=== PATIENT | female | born 1960 | race Caucasian/White ===

== ENCOUNTER 2017-08-20 15:24 | Inpatient (IN) | payer BC ==
[2017-08-20] MEDS ORDERED: Famotidine 20 MG/2 ML SDV IVPUSH ONE (15:54)
[2017-08-20] MEDS ORDERED: Pantoprazole 40 MG Vial IVPUSH ONE (15:54)
[2017-08-20] MEDS ORDERED: Sodium Chloride 0.9% 1,000 ML ONE (15:58)
[2017-08-20] MEDS ORDERED: Sodium Chloride 0.9% 1,000 ML IV SCH ×3 (16:00→23:30)
[2017-08-20] MEDS: Sodium Chloride 0.9% 10 ML Syringe FLUSH PRN (16:00)
[2017-08-20] MEDS ORDERED: Sodium Chloride 0.9% 1,000 ML IV ONE (16:08)
[2017-08-20] MEDS ORDERED: Ondansetron 4 MG/2 ML SDV IVPUSH ONE (16:09)
[2017-08-20] MEDS ORDERED: HYDROmorphone 0.5 MG/0.5 ML Syringe IVPUSH ONE ×2 (16:09→17:34)
[2017-08-20] MEDS ORDERED: Levofloxacin/Dextrose 5%-Water 500 MG in Premix Bag 1 BAG IV ONE (17:35)
--- NOTE | 2017-08-20 17:36 | EDM.PDOC ---
ED HPI GENERAL MEDICAL PROBLEM - General Chief Complaint: Abdominal Pain Stated Complaint: [facility] Time Seen by Provider: 08/20/17 15:53 Source of Information: Reports: Patient, EMS, RN Notes Reviewed - History of Present Illness INITIAL COMMENTS - FREE TEXT/NARRATIVE: 57-year-old female has been brought in by EMS with abdominal pain, dizziness, hypotension, hematochezia. She felt fine this past morning, had a normal type launch and then about an hour or 2 later started having abdominal pain and cramping. She then started having some severe watery and bloody diarrhea. The abdominal pain and cramping is been generalized. She has had some nausea but no vomiting. No fever or chills. She states that she did eat some potato salad that she picked up at a store 2 or 3 days ago lunch today. She does feel weak, dizzy, lightheaded. Have history of hypertension and also type 2 diabetes treated with oral meds. Lower Abdominal Pain Score (Numeric/FACES): 0 - Related Data Allergies Allergy/AdvReac Type Severity Reaction Status Date / Time latex Allergy Rash Verified 08/20/17 15:49 Past Medical History - Past Surgical History HEENT Surgical History: Reports: Visual GI Surgical History: Reports: Bariatric Procedure Female Surgical History: Reports: Hysterectomy Social & Family History - Tobacco Use Smoking Status *Q: Never Smoker Second Hand Smoke Exposure: No - Caffeine Use Caffeine Use: Reports: None - Recreational Drug Use Recreational Drug Use: No ED ROS GENERAL - Review of Systems Review Of Systems: See Below Constitutional: Reports: Chills. Denies: Fever HEENT: Reports: Other. Denies: Throat Pain Respiratory: Denies: Shortness of Breath (Mouth feels dry), Pleuritic Chest Pain Cardiovascular: Denies: Chest Pain GI/Abdominal: Reports: Abdominal Pain, Diarrhea (Generalized abdominal pain and cramping), Hematochezia, Nausea. Denies: Vomiting Musculoskeletal: Reports: Other (Generalized achiness) Skin: Denies: Rash Neurological: Reports: Dizziness, Weakness. Denies: Trouble Speaking ( Generalized) ED EXAM, GI/ABD - Physical Exam Exam: See Below General Appearance: Alert, Moderate Distress Eyes: Bilateral: Normal Appearance Throat/Mouth: Normal Inspection, Other Head: Atraumatic (Oral mucosa is dry). No: Facial Swelling Neck: Supple, Full Range of Motion Respiratory/Chest: No Respiratory Distress, Lungs Clear, Normal Breath Sounds Cardiovascular: Regular Rate, Rhythm GI/Abdominal Exam: Soft, Tender (Moderate diffuse tenderness). No: Guarding, Rebound Extremities: Normal Inspection, Normal Range of Motion. No: Pedal Edema Neurological: Alert, Oriented, No Motor/Sensory Deficits Skin Exam: Warm, Dry, Normal Color Course - Vital Signs Last Recorded V/S: Last Vital Signs Temp 96.2 F 08/20/17 15:45 Pulse 88 08/20/17 15:45 Resp 18 08/20/17 15:45 BP 87/58 L 08/20/17 15:45 Pulse Ox 99 08/20/17 15:45 - Orders/Labs/Meds Orders: Active Orders 24 hr Category Date Time Status Peripheral IV Care [RC] . DIRECTED Care 08/20/17 15:55 Active CULTURE STOOL + SHIGATOX [RM] Stat Lab 08/20/17 18:05 Received Sodium Chloride 0.9% [Normal Saline] 1,000 ml Med 08/20/17 16:00 Active IV ONETIME Sodium Chloride 0.9% [Normal Saline] 1,000 ml Med 08/20/17 17:45 Active IV ONETIME Sodium Chloride 0.9% [Saline Flush] Med 08/20/17 15:54 Active 10 ml FLUSH ASDIRECTED PRN Peripheral IV Insertion Adult [OM.PC] Stat Oth 08/20/17 15:54 Ordered Medication Orders Sodium Chloride (Normal Saline) 1,000 mls @ 999 mls/hr IV ONETIME EN Last Admin: 08/20/17 15:59 Dose: 999 mls/hr Sodium Chloride (Normal Saline) 1,000 mls @ 999 mls/hr IV ONETIME EN Last Admin: 08/20/17 17:45 Dose: 999 mls/hr Sodium Chloride (Saline Flush) 10 ml FLUSH ASDIRECTED PRN PRN Reason: Keep Vein Open Last Admin: 08/20/17 16:00 Dose: 10 ml Labs: Laboratory Tests 08/20/17 08/20/17 08/20/17 Range/Units 16:00 16:00 16:00 WBC 22.85 H (3.98-10.04) K/mm3 RBC 5.34 H (3.98-5.22) M/mm3 Hgb 14.7 (11.2-15.7) gm/L Hct 45.8 H (34.1-44.9) % MCV 85.8 (79.4-94.8) fl MCH 27.5 (25.6-32.2) pg MCHC 32.1 L (32.2-35.5) g/dl RDW Std Deviation 46.0 (36.4-46.3) fL Plt Count 228 (182-369) K/mm3 MPV 9.9 (9.4-12.3) fl Neut % (Auto) 88.0 H (34.0-71.1) % Lymph % (Auto) 6.3 L (19.3-51.7) % Gooding % (Auto) 3.9 L (4.7-12.5) % Eos % (Auto) 0.9 (0.7-5.8) Baso % (Auto) 0.3 (0.1-1.2) % Neut # (Auto) 20.14 H (1.56-6.13) K/mm3 Lymph # (Auto) 1.43 (1.18-3.74) K/mm3 Gooding # (Auto) 0.89 H (0.24-0.36) K/mm3 Eos # (Auto) 0.20 (0.04-0.36) K/mm3 Baso # (Auto) 0.06 (0.01-0.08) K/mm3 Manual Slide Review Normal smear PT 42.2 H (8.0-13.0) SECONDS INR 3.57 APTT 42 H (22-36) SECONDS Sodium 137 (136-145) mEq/L Potassium 5.0 (3.5-5.1) mEq/L Chloride 101 (98-107) mEq/L Carbon Dioxide 23 (21-32) mEq/L Anion Gap 18.0 H (5-15) BUN 29 H (7-18) mg/dL Creatinine 1.6 H (0.55-1.02) mg/dL Est Cr Clr Drug Dosing 34.49 mL/min Estimated GFR (MDRD) 33 (>60) mL/min BUN/Creatinine Ratio 18.1 H (14-18) Glucose 392 H (74-106) mg/dL Calcium 10.2 H (8.5-10.1) mg/dL Total Bilirubin 0.5 (0.2-1.0) mg/dL AST 32 (15-37) U/L ALT 37 (14-59) U/L Alkaline Phosphatase 110 (46-116) U/L Total Protein 7.6 (6.4-8.2) g/dl Albumin 3.8 (3.4-5.0) g/dl Globulin 3.8 gm/dL Albumin/Globulin Ratio 1.0 (1-2) Blood Type Gel Antibody Screen 08/20/17 Range/Units 16:00 WBC (3.98-10.04) K/mm3 RBC (3.98-5.22) M/mm3 Hgb (11.2-15.7) gm/L Hct (34.1-44.9) % MCV (79.4-94.8) fl MCH (25.6-32.2) pg MCHC (32.2-35.5) g/dl RDW Std Deviation (36.4-46.3) fL Plt Count (182-369) K/mm3 MPV (9.4-12.3) fl Neut % (Auto) (34.0-71.1) % Lymph % (Auto) (19.3-51.7) % Gooding % (Auto) (4.7-12.5) % Eos % (Auto) (0.7-5.8) Baso % (Auto) (0.1-1.2) % Neut # (Auto) (1.56-6.13) K/mm3 Lymph # (Auto) (1.18-3.74) K/mm3 Gooding # (Auto) (0.24-0.36) K/mm3 Eos # (Auto) (0.04-0.36) K/mm3 Baso # (Auto) (0.01-0.08) K/mm3 Manual Slide Review PT (8.0-13.0) SECONDS INR APTT (22-36) SECONDS Sodium (136-145) mEq/L Potassium (3.5-5.1) mEq/L Chloride (98-107) mEq/L Carbon Dioxide (21-32) mEq/L Anion Gap (5-15) BUN (7-18) mg/dL Creatinine (0.55-1.02) mg/dL Est Cr Clr Drug Dosing mL/min Estimated GFR (MDRD) (>60) mL/min BUN/Creatinine Ratio (14-18) Glucose (74-106) mg/dL Calcium (8.5-10.1) mg/dL Total Bilirubin (0.2-1.0) mg/dL AST (15-37) U/L ALT (14-59) U/L Alkaline Phosphatase (46-116) U/L Total Protein (6.4-8.2) g/dl Albumin (3.4-5.0) g/dl Globulin gm/dL Albumin/Globulin Ratio (1-2) Blood Type O POSITIVE Gel Antibody Screen Negative Meds: Medications Generic Name Dose Route Start Last Admin Trade Name Freq PRN Reason Stop Dose Admin Sodium Chloride 1,000 mls @ 999 mls/hr 08/20/17 16:00 08/20/17 15:59 Normal Saline IV 999 mls/hr ONETIME EN Administration Sodium Chloride 1,000 mls @ 999 mls/hr 08/20/17 17:45 08/20/17 17:45 Normal Saline IV 999 mls/hr ONETIME EN Administration Sodium Chloride 10 ml 08/20/17 15:54 08/20/17 16:00 Saline Flush FLUSH 10 ml ASDIRECTED PRN Administration Keep Vein Open Discontinued Medications Generic Name Dose Route Start Last Admin Trade Name Freq PRN Reason Stop Dose Admin Famotidine 20 mg 08/20/17 15:54 08/20/17 16:05 Pepcid IVPUSH 08/20/17 15:55 20 mg ONETIME ONE Administration Hydromorphone HCl 0.25 mg 08/20/17 16:09 08/20/17 16:37 Dilaudid IVPUSH 08/20/17 16:10 0.25 mg ONETIME ONE Administration Hydromorphone HCl 0.25 mg 08/20/17 17:34 08/20/17 17:50 Dilaudid IVPUSH 08/20/17 17:35 0.25 mg ONETIME ONE Administration Sodium Chloride Confirm 08/20/17 15:58 08/20/17 16:00 Normal Saline Administered 08/20/17 15:59 Not Given Dose 1,000 mls @ as directed .ROUTE .STK-MED ONE Sodium Chloride 1,000 mls @ 999 mls/hr 08/20/17 16:08 08/20/17 16:09 Normal Saline IV 08/20/17 17:08 999 mls/hr ONETIME ONE Administration Levofloxacin/Dextrose 500 mg/ 100 mls @ 100 mls/hr 08/20/17 17:35 08/20/17 17 :55 Premix IV 08/20/17 18:34 100 mls/hr ONETIME ONE Administration Ondansetron HCl 4 mg 08/20/17 16:09 08/20/17 16:35 Zofran IVPUSH 08/20/17 16:10 4 mg ONETIME ONE Administration Pantoprazole Sodium 40 mg 08/20/17 15:54 08/20/17 16:03 Protonix Iv IVPUSH 08/20/17 15:55 40 mg ONETIME ONE Administration - Re-Assessments/Exams Free Text/Narrative Re-Assessment/Exam: 08/20/17 19:18 patient did feel better after 2 L IV fluid, very small dose of Dilaudid IV, Pepcid Zofran and Protonix IV. Liver she has had multiple further episodes of watery alternating with quite bloody diarrhea. Labs did show significant dehydration on arrival. Anion gap and creatinine both elevated. With all of that and her initial hypotension it is reasonable to admit until the bleeding resolves, white blood count comes down and fluid balance is adequately restored. She will be admitted to ICU, Dr. Olmstead accepting physician Departure - Departure Time of Disposition: 19:00 Disposition: Admitted As Inpatient 65 Condition: Serious Clinical Impression: Colitis, Dehydration GI bleeding Qualifiers: GI bleed type/associated pathology: unspecified gastrointestinal hemorrhage type Qualified Code(s): K92.2 - Gastrointestinal hemorrhage, unspecified - Discharge Information Referrals: Ria Wheeler MD [Primary Care Provider] - Forms: ED Department Discharge ED Communication - Discussed Case With (1) Discussed Case With (1): Admitting Provider (Dr Olmstead, decision to admit at about 19:00.) - My Orders Last 24 Hours: My Active Orders 08/20/17 15:54 Sodium Chloride 0.9% [Saline Flush] 10 ml FLUSH ASDIRECTED PRN Peripheral IV Insertion Adult [OM.PC] Stat 08/20/17 15:55 Peripheral IV Care [RC] . DIRECTED 08/20/17 16:00 Sodium Chloride 0.9% [Normal Saline] 1,000 ml IV ONETIME 08/20/17 17:45 Sodium Chloride 0.9% [Normal Saline] 1,000 ml IV ONETIME 08/20/17 18:05 CULTURE STOOL + SHIGATOX [RM] Stat - Assessment/Plan Last 24 Hours: My Active Orders 08/20/17 15:54 Sodium Chloride 0.9% [Saline Flush] 10 ml FLUSH ASDIRECTED PRN Peripheral IV Insertion Adult [OM.PC] Stat 08/20/17 15:55 Peripheral IV Care [RC] . DIRECTED 08/20/17 16:00 Sodium Chloride 0.9% [Normal Saline] 1,000 ml IV ONETIME 08/20/17 17:45 Sodium Chloride 0.9% [Normal Saline] 1,000 ml IV ONETIME 08/20/17 18:05 CULTURE STOOL + SHIGATOX [RM] Stat
[2017-08-20] MEDS ORDERED: Promethazine 12.5 MG in Sodium Chloride 0.9% 50 ML IV PRN (20:07)
[2017-08-20] MEDS ORDERED: Acetaminophen/HYDROcodone 325-5 MG Tab PO PRN (20:07)
[2017-08-20] MEDS ORDERED: Ondansetron 4 MG/2 ML SDV IV PRN (20:07)
[2017-08-20] MEDS ORDERED: Acetaminophen 325 MG Tab PO PRN (20:07)
[2017-08-20] MEDS ORDERED: HYDROmorphone 0.5 MG/0.5 ML Syringe IVPUSH PRN (20:07)
[2017-08-20] MEDS ORDERED: Albuterol/Ipratropium 3.0-0.5 MG/3 ML Neb Soln NEB PRN (20:09)
[2017-08-20] MEDS ORDERED: Metoprolol Tartrate 5 MG/5 ML SDV IVPUSH PRN (20:13)
[2017-08-20] MEDS ORDERED: FLU Vacc QS 2017-18 (6mos UP)/PF 60 MCG/0.5 ML Syringe IM ONE (20:15)
--- NOTE | 2017-08-20 20:31 | PCM.HP ---
H&P History of Present Illness - General Date of Service: 08/20/17 Admit Problem/Dx: GI Bleeding Source of Information: Patient, Old Records, Provider, RN, RN Notes Reviewed History Limitations: Reports: No Limitations - History of Present Illness Initial Comments - Free Text/Narative: Blanquita Huynh is a 57 yo female who presents to our ED today (08/20/16) via ambulance with abdominal pain, dizziness, hypotension, hematochezia. She poorly felt fine this morning and had a normal lunch with potato salad which was store-bought 2-3 days prior. Approximately 2 hours later she began having abdominal pain and cramping followed by severe watery and bloody diarrhea. She' s had some nausea but no vomiting, fever, or chills. She reports she feels weak , dizzy, lightheaded. On arrival temp is 96.2F. Pulse 88. Respiration 18. BP 87/58. Pulse ox 99% . Labs are obtained: The FVC elevated at 22.85. RBC high at 5.34. Hemoglobin good at 14.7. Hematocrit high at 45.8. She was normocytic. Pulses are 228, 000. Neutrophils elevated at 88%. PT is high at 42.2. INR high at 3.57. APTT high at 42. She's not on any blood thinners. Sodium is 138. Potassium 5.0. Chloride 101. Carbon dioxide 23. Anion gap high at 18.0. BUN high at 29. Creatinine high at 1.6. EGFR low at 33. Glucose high at 392. Calcium high at 10.2. Bilirubin 0.5. AST 32, ALT 37, alkaline phosphatase 110. Protein good at 7.6. Albumin 3.8. Stool cultures were also ordered and are pending. She was typed and screened with O+ blood gel antibody screen negative. She is given a 2 L bolus and 0.25 of Dilaudid twice for pain. 20 mg IV push of Pepcid was given. 500 mg Levaquin, 40 mg protonic's, and 4 mg Zofran were also given. After medication she did have multiple further episodes of watery diarrhea alternating with quite bloody diarrhea. As noted, her labs showed significant dehydration with elevated anion gap, hematocrit, and creatinine. She carries a history of: LAP-BAND procedure, hypertension, HLD, arthritis, type II DM. She did recently see her GI provider for follow-up on the LAP-BAND and was told everything looks great. She was never a smoker. She subsequently admitted to the ICU. She is a full code. Her PCP is Dr. Stallings at [facility] in [place]. Onset of Symptoms: Reports: Today, Sudden Symptom Onset Date: 08/20/17 Lower Abdominal Pain Score (Numeric/FACES): 0 - Related Data Allergies/Adverse Reactions: Allergies Allergy/AdvReac Type Severity Reaction Status Date / Time latex Allergy Rash Verified 08/20/17 15:49 Home Medications: Home Meds Aspirin [Lo-Dose Aspirin EC] 81 mg PO DAILY 08/20/17 [History] Hydrochlorothiazide 12.5 mg PO DAILY 08/20/17 [History] Lisinopril [Zestril] 40 mg PO DAILY 08/20/17 [History] Multivitamin [Multiple Vitamins] 1 tab PO DAILY 08/20/17 [History] Isabella-3S/DHA/Epa/Fish Oil [Isabella-3 Fish Oil 1,000 mg Sfgl] 1,000 mg PO DAILY 05/28 [History] Oxybutynin Chloride [Ditropan Xl] 10 mg PO DAILY 08/20/17 [History] Protein Liquid Nutritional Sup 0 dose PO ASDIRECTED 08/20/17 [History] Ubiquinol 100 mg PO DAILY 08/20/17 [History] Vitamin B Complex [B Complex] 1 tab PO DAILY 08/20/17 [History] amLODIPine [Norvasc] 5 mg PO DAILY 08/20/17 [History] atorvaSTATin [Lipitor] 20 mg PO DAILY 08/20/17 [History] glyBURIDE [Glyburide] 5 mg PO DAILY 08/20/17 [History] sitaGLIPtin Phos/Metformin HCl [Janumet 50-1,000 MG] 50 - 1,000 mg PO DAILY 05/28 [History] Past Medical History HEENT History: Reports: Other (See Below) Other HEENT History: Eye sx in 2016 Cardiovascular History: Reports: High Cholesterol, Hypertension 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: Reports: Other (See Below) Other OB/BYN History: Hysterectomy Musculoskeletal History: Reports: Arthritis Endocrine/Metabolic History: Reports: Diabetes, Type II - Past Surgical History HEENT Surgical History: Reports: Visual Cardiovascular Surgical History: Reports: None GI Surgical History: Reports: Bariatric Procedure Female Surgical History: Reports: Hysterectomy Social & Family History - Family History Family Medical History: Noncontributory - Tobacco Use Smoking Status *Q: Never Smoker Second Hand Smoke Exposure: No - Caffeine Use Caffeine Use: Reports: Soda - Recreational Drug Use Recreational Drug Use: No H&P Review of Systems - Review of Systems: Review Of Systems: See Below Free Text/Narrative: In to see Blanquita. She is complaining of some abdominal pain. She does note generalized abdominal tenderness and some back pain. The back pain is not new for her and she has been working with a therapist for this. She reports symptoms began today after eating some store-bought potato salad. She has had this salad 2-3 times in the past without symptoms. It has been refrigerated. She denies any recent changes in stool pattern or caliber. She has never had grossly bloody, melenic, or blood-streaked stool before. She has never had a colonoscopy. She has had a lap band procedure, but reports she was recently evaluated by her surgeon and told everything looks good. General: Reports: Chills, Malaise, Weakness, Fatigue, Decreased Appetite. Denies: Fever, Diaphoresis HEENT: Reports: No Symptoms. Denies: Ear Pain, Eye Pain, Headaches, Rhinitis, Sinus Congestion, Sore Throat, Visual Changes Pulmonary: Reports: No Symptoms. Denies: Shortness of Breath, Wheezing, Pleuritic Chest Pain, Cough, Sputum Cardiovascular: Reports: Lightheadedness. Denies: Chest Pain, Palpitations, Dyspnea on Exertion, Edema, Syncope Gastrointestinal: Reports: Abdominal Pain (crampy in nature ), Diarrhea, Flatus , Hematochezia, Nausea, Stool Incontinence. Denies: Constipation, Difficulty Swallowing, Hematemesis, Melena, Vomiting Genitourinary: Denies: Dysuria, Frequency, Burning, Pain, Urgency Musculoskeletal: Reports: Back Pain (chronic - being treated by a therapist. Worseing now laying in bed. ), Other (generalized achy feeling ) Skin: Reports: No Symptoms Psychiatric: Reports: No Symptoms Neurological: Reports: No Symptoms Hematologic/Lymphatic: Reports: No Symptoms. Denies: Anemia, Easy Bleeding, Easy Bruising Immunologic: Reports: No Symptoms Exam - Exam Exam: See Below - Vital Signs Vital Signs: Last Vital Signs Temp 96.2 F 08/20/17 15:45 Pulse 88 08/20/17 15:45 Resp 18 08/20/17 15:45 BP 87/58 L 08/20/17 15:45 Pulse Ox 99 08/20/17 15:45 Weight: 221 lb 4.8 oz - Exam Quality Assessment: DVT Prophylaxis General: Alert, Oriented, Cooperative, Mild Distress HEENT: Conjunctiva Clear, EACs Clear, EOMI, Hearing Intact, Nares Patent, Normal Nasal Septum, Posterior Pharynx Clear, TMs Clear, Other (Oral mucosa dry and fissured ), PERRLA Neck: Supple, Trachea Midline. No: JVD, Thyromegaly Lungs: Clear to Auscultation, Normal Respiratory Effort Cardiovascular: Regular Rate, Regular Rhythm GI/Abdominal Exam: Normal Bowel Sounds, Soft, Guarding, Tender (generalized ), Other (unable to deeply palpate due to pain and guarding ) (Female) Exam: Deferred Rectal (Female) Exam: Deferred Back Exam: Normal Inspection, Full Range of Motion Extremities: Normal Inspection, Normal Range of Motion, Non-Tender, No Pedal Edema, Normal Capillary Refill Peripheral Pulses: 2+: Radial (L), Radial (R), Posterior Tibial (L), Posterior Tibial (R), Dorsalis Pedis (L), Dorsalis Pedis (R) Skin: Warm, Dry, Intact Neurological: Cranial Nerves Intact (grossly ) Neuro Extensive - Mental Status: Alert, Oriented x3, Normal Mood/Affect, Normal Cognition, Memory Intact Neuro Extensive - Motor, Sensory, Reflexes: CN II-XII Intact (grossly ), Normal Gait Psychiatric: Alert, Normal Affect, Normal Mood - Patient Data Result Diagrams: 08/20/17 20:45 08/20/17 16:00 *Q Meaningful Use (ADM) - VTE *Q VTE Criteria *Q: - Stroke *Q Stroke Criteria *Q: - AMI *Q AMI Criteria *Q: - Problem List (1) GI bleeding SNOMED Code(s): 46849867 ICD Code: K92.2 - GASTROINTESTINAL HEMORRHAGE, UNSPECIFIED Status: Acute Priority: High Current Visit: Yes Qualifiers: GI bleed type/associated pathology: unspecified gastrointestinal hemorrhage type Qualified Code(s): K92.2 - Gastrointestinal hemorrhage, unspecified (2) Dehydration SNOMED Code(s): 26208972 ICD Code: E86.0 - DEHYDRATION Status: Acute Priority: High Current Visit: Yes (3) Type II diabetes mellitus SNOMED Code(s): 72327283 ICD Code: E11.9 - TYPE 2 DIABETES MELLITUS WITHOUT COMPLICATIONS Status: Chronic Priority: Low Current Visit: Yes Qualifiers: Diabetes mellitus complication status: without complication Diabetes mellitus vermin exterminator insulin use: without vermin exterminator use Qualified Code(s): E11.9 - Type 2 diabetes mellitus without complications (4) HTN (hypertension) SNOMED Code(s): 69379568 ICD Code: I10 - ESSENTIAL (PRIMARY) HYPERTENSION Status: Acute Priority: Low Current Visit: No Qualifiers: Hypertension type: essential hypertension Qualified Code(s): I10 - Essential (primary) hypertension (5) Arthritis SNOMED Code(s): 1080489 ICD Code: M19.90 - UNSPECIFIED OSTEOARTHRITIS, UNSPECIFIED SITE Status: Chronic Priority: Low Current Visit: No (6) HLD (hyperlipidemia) SNOMED Code(s): 84491038 ICD Code: E78.5 - HYPERLIPIDEMIA, UNSPECIFIED Status: Chronic Priority: Low Current Visit: No Qualifiers: Hyperlipidemia type: unspecified Qualified Code(s): E78.5 - Hyperlipidemia , unspecified (7) Acute kidney injury SNOMED Code(s): 99347889 ICD Code: N17.9 - ACUTE KIDNEY FAILURE, UNSPECIFIED Status: Acute Priority: High Current Visit: Yes Problem List Initiated/Reviewed/Updated: Yes Orders Last 24hrs: Active Orders 24 hr Category Date Time Status Antiembolic Devices [RC] PER UNIT ROUTINE Care 08/20/17 20:10 Active Cardiac Monitoring [RC] CONTINUOUS Care 08/20/17 20:08 Active Height and Weight [RC] DAILY Care 08/20/17 20:07 Active Intake and Output [RC] QSHIFT Care 08/20/17 20:08 Active Oxygen Therapy [RC] PRN Care 08/20/17 20:07 Active RT Aerosol Therapy [RC] ASDIRECTED Care 08/20/17 20:10 Active Up ad Milagro [RC] ASDIRECTED Care 08/20/17 20:07 Active VTE/DVT Education [RC] PER UNIT ROUTINE Care 08/20/17 20:07 Active Vital Signs [RC] Q4H Care 08/20/17 20:07 Active Nothing per Oral Now Diet [DIET] Diet 08/20/17 Dinner Active BASIC METABOLIC PANEL,BMP [CHEM] AM Lab 08/21/17 05:11 Ordered BASIC METABOLIC PANEL,BMP [CHEM] AM Lab 08/22/17 05:11 Ordered BASIC METABOLIC PANEL,BMP [CHEM] AM Lab 08/23/17 05:11 Ordered BASIC METABOLIC PANEL,BMP [CHEM] AM Lab 08/24/17 05:11 Ordered BASIC METABOLIC PANEL,BMP [CHEM] AM Lab 08/25/17 05:11 Ordered CBC WITH AUTO DIFF [HEME] AM Lab 08/21/17 05:11 Ordered CBC WITH AUTO DIFF [HEME] AM Lab 08/22/17 05:11 Ordered CBC WITH AUTO DIFF [HEME] AM Lab 08/23/17 05:11 Ordered CBC WITH AUTO DIFF [HEME] AM Lab 08/24/17 05:11 Ordered CBC WITH AUTO DIFF [HEME] Routine Lab 08/20/17 20:11 Ordered CRP [C-REACTIVE PROTEIN] [CHEM] AM Lab 08/21/17 05:11 Ordered CRP [C-REACTIVE PROTEIN] [CHEM] Stat Lab 08/20/17 20:15 Ordered FECAL LACTOFERRIN [MREF] Stat Lab 08/20/17 20:15 Uncollected MAGNESIUM [CHEM] AM Lab 08/21/17 05:11 Ordered MAGNESIUM [CHEM] AM Lab 08/22/17 05:11 Ordered MAGNESIUM [CHEM] AM Lab 08/23/17 05:11 Ordered MAGNESIUM [CHEM] AM Lab 08/24/17 05:11 Ordered MAGNESIUM [CHEM] AM Lab 08/25/17 05:11 Ordered TYPE AND SCREEN [BBK] Routine Lab 08/20/17 20:14 Ordered Acetaminophen [Tylenol] Med 08/20/17 20:07 Active 650 mg PO Q4H PRN Acetaminophen/HYDROcodone [[place] 325-5 MG] Med 08/20/17 20:07 Active 1 tab PO Q4H PRN Albuterol/Ipratropium [DuoNeb 3.0-0.5 MG/3 ML] Med 08/20/17 20:09 Active 3 ml NEB Q4H PRN HYDROmorphone [Dilaudid] Med 08/20/17 20:07 Active 0.25 mg IVPUSH Q2H PRN Magnesium Rep Pharmacy to Dose [Pharmacy to Dose - Med 08/20/17 20:15 Pending Magnesium Replacement] 1 dose .XX ASDIRECTED Metoprolol Tartrate [Lopressor] Med 08/20/17 20:13 Active 5 mg IVPUSH Q4H PRN Ondansetron [Zofran] Med 08/20/17 20:07 Active 4 mg IV Q4H PRN Pantoprazole [ProTONIX IV] Med 08/20/17 21:00 Active 40 mg IV Q12H Potassium Rep Pharmacy to Dose [Pharmacy to Dose - Med 08/20/17 20:15 Pending Potassium Replacement] 1 dose .XX ASDIRECTED Promethazine [Phenergan] 12.5 mg Med 08/20/17 20:07 Active Sodium Chloride 0.9% [Normal Saline] 50 ml IV Q6H Temazepam [Restoril] Med 08/20/17 20:09 Active 15 mg PO BEDTIME PRN hydrALAZINE [Apresoline] Med 08/20/17 20:13 Active 20 mg IVPUSH Q4H PRN Sequential Compression Device [OM.PC] Per Unit Routine Oth 08/20/17 20:08 Ordered Resuscitation Status Routine Resus Stat 08/20/17 20:07 Ordered Medication Orders Acetaminophen (Tylenol) 650 mg PO Q4H PRN PRN Reason: Pain (Mild 1-3)/fever Hydrocodone Bitart/Acetaminophen ([place] 325-5 Mg) 1 tab PO Q4H PRN PRN Reason: Pain (moderate 4-6) Albuterol/Ipratropium (Duoneb 3.0-0.5 Mg/3 Ml) 3 ml NEB Q4H PRN PRN Reason: Shortness Of Breath/wheezing Hydralazine HCl (Apresoline) 20 mg IVPUSH Q4H PRN PRN Reason: Hypertension Hydromorphone HCl (Dilaudid) 0.25 mg IVPUSH Q2H PRN PRN Reason: Pain (severe 7-10) Sodium Chloride (Normal Saline) 1,000 mls @ 999 mls/hr IV ONETIME EN Last Admin: 08/20/17 15:59 Dose: 999 mls/hr Sodium Chloride (Normal Saline) 1,000 mls @ 999 mls/hr IV ONETIME EN Last Admin: 08/20/17 17:45 Dose: 999 mls/hr Promethazine HCl 12.5 mg/ (Sodium Chloride) 50.5 mls @ 100 mls/hr IV Q6H PRN PRN Reason: Nausea/Vomiting Magnesium Sulfate (Pharmacy To Dose - Magnesium Replacement) 1 dose .XX ASDIRECTED [facility] Metoprolol Tartrate (Lopressor) 5 mg IVPUSH Q4H PRN PRN Reason: Tachycardia Ondansetron HCl (Zofran) 4 mg IV Q4H PRN PRN Reason: Nausea/Vomiting Pantoprazole Sodium (Protonix Iv) 40 mg IV Q12H EN Stop: 08/22/17 09:01 Potassium Chloride (Pharmacy To Dose - Potassium Replacement) 1 dose .XX ASDIRECTED [facility] Sodium Chloride (Saline Flush) 10 ml FLUSH ASDIRECTED PRN PRN Reason: Keep Vein Open Last Admin: 08/20/17 16:00 Dose: 10 ml Temazepam (Restoril) 15 mg PO BEDTIME PRN PRN Reason: Sleep Assessment/Plan Comment:: I/P: GI Bleed -Multiple episodes of bloody and watery alternating diarrhea in ED and prior to arrival -Generalized abdominal pain/guarding -Nausea but no vomiting, afebrile -PT 42.2, INR 3.57, APTT 42 - not on any blood thinners -Hgb 14.7-->13.5 -2L fluid bolus in ED -Type and screen -Fecal lactoferren -Fluids as ordered -Protonix IVP -Consider GS consult Leukocytosis -? Foodborne infection vs other cause -Reportedly ate potato salad prior to events -WBC 22.85 -->13.62 -CRP 0.8 -Levaquin given in ED -Stool culture obtained in ED - pending Dehydration -Elevated Anion gap (18.0), Creatinine (1.6), Hct (45.8), hypotensive (87/58) , lightheaded and dizzy in ED -Multiple episodes of diarrhea -Very dry mucous membranes -2 L NS given in ED -Electrolytes look good -IV fluids as ordered -Monitor Acute Kidney Injury -2/2 above -BUN 29 -Creatinine 1.6 -eGFR 33 -Fluids as ordered Chronic: Type II DM - sliding scale insulin and glucose checks as ordered HLD HTN Arthritis s/p LAP BAND surgery Plan: Admit to ICU Routine AM labs Other orders as indicated above DVT/PE prophylaxis: SCDs CM for discharge planning Home medications as ordered Code Status: FULL CODE. Her PCP is Dr. Stallings at [facility] here in [place].
[2017-08-20] MEDS ORDERED: 50% Dextrose in Water 50 ML Syringe IVPUSH PRN (20:38)
[2017-08-20] MEDS: Temazepam 15 MG Cap PO PRN (21:09)
[2017-08-20] MEDS: Pantoprazole 40 MG Vial IV SCH (21:09)
[2017-08-20] MEDS ORDERED: Insulin Aspart 100 Units/ML 3 ML Pen SUBCUT SCH (22:00)
[2017-08-20] MEDS: Insulin Aspart 100 Units/ML 3 ML Pen SUBCUT SCH (22:30)
[2017-08-21] MEDS: Insulin Aspart 100 Units/ML 3 ML Pen SUBCUT SCH ×4 (07:27→21:00)
[2017-08-21] MEDS ORDERED: Magnesium Oxide 400 MG Tab PO ONE (08:30)
[2017-08-21] MEDS: Dextrose 5%-0.9% NaCl 1,000 ML IV SCH ×2 (09:12→19:20)
[2017-08-21] MEDS: Pantoprazole 40 MG Vial IV SCH ×2 (09:13→20:52)
[2017-08-21] MEDS ORDERED: Magnesium Sulfate/Water 2 GM in Premix Bag 1 BAG IV ONE (10:30)
--- NOTE | 2017-08-21 14:52 | PCM.PN ---
- General Info Date of Service: 08/21/17 Admission Dx/Problem (Free Text): GI Bleeding Subjective Update: Follow up Functional Status: Reports: Pain Controlled, Ambulating, Urinating. Denies: New Symptoms - Review of Systems General: Denies: Fever, Weakness, Fatigue, Malaise, Chills HEENT: Reports: No Symptoms Pulmonary: Denies: Shortness of Breath Cardiovascular: Denies: Chest Pain, Dyspnea on Exertion, Lightheadedness Gastrointestinal: Reports: Abdominal Pain, Diarrhea, Flatus, Hematochezia. Denies: Decreased Appetite, Difficulty Swallowing, Melena, Nausea, Vomiting Genitourinary: Reports: No Symptoms Musculoskeletal: Reports: No Symptoms Skin: Denies: Cyanosis, Jaundice, Mottled, Pallor, Diaphoresis, Rash Neurological: Denies: Confusion, Difficulty Walking, Weakness, Gait Disturbance Psychiatric: Denies: Depression, Anxiety, Agitation, Hallucinations Systems Review Comment:: She has had 5 rectal bleed overnight and one this morning but a less bloody- pinkish in color. She is afebrile and her leukocytosis resolved. However she report belly discomfort that is pressure like in nature. She reports no other complaints. Her Hgb is stable at 10.9. - Patient Data Vitals - Most Recent: Last Vital Signs Temp 37.2 C 08/21/17 12:00 Pulse 75 08/21/17 12:00 Resp 13 08/21/17 12:00 BP 117/79 08/21/17 12:00 Pulse Ox 94 L 08/21/17 12:00 Weight - Most Recent: 100.062 kg I&O - Last 24 Hours: Intake & Output 08/20/17 08/21/17 08/21/17 22:59 06:59 14:59 Intake Total 881 125 Balance 881 125 Lab Results Last 24 Hours: Laboratory Results - last 24 hr 08/20/17 08/20/17 08/20/17 Range/Units 20:45 20:45 21:17 WBC 13.62 H (3.98-10.04) K/mm3 RBC 4.89 (3.98-5.22) M/mm3 Hgb 13.5 (11.2-15.7) gm/L Hct 41.7 (34.1-44.9) % MCV 85.3 (79.4-94.8) fl MCH 27.6 (25.6-32.2) pg MCHC 32.4 (32.2-35.5) g/dl RDW Std Deviation 44.9 (36.4-46.3) fL Plt Count 149 L (182-369) K/mm3 MPV 9.9 (9.4-12.3) fl Neut % (Auto) 90.6 H (34.0-71.1) % Lymph % (Auto) 4.0 L (19.3-51.7) % Bureau % (Auto) 4.6 L (4.7-12.5) % Eos % (Auto) 0.2 L (0.7-5.8) Baso % (Auto) 0.1 (0.1-1.2) % Neut # (Auto) 12.32 H (1.56-6.13) K/mm3 Lymph # (Auto) 0.55 L (1.18-3.74) K/mm3 Bureau # (Auto) 0.63 H (0.24-0.36) K/mm3 Eos # (Auto) 0.03 L (0.04-0.36) K/mm3 Baso # (Auto) 0.02 (0.01-0.08) K/mm3 Manual Slide Review Abnormal smear Sodium (136-145) mEq/L Potassium (3.5-5.1) mEq/L Chloride (98-107) mEq/L Carbon Dioxide (21-32) mEq/L Anion Gap (5-15) BUN (7-18) mg/dL Creatinine (0.55-1.02) mg/dL Est Cr Clr Drug Dosing mL/min Estimated GFR (MDRD) (>60) mL/min BUN/Creatinine Ratio (14-18) Glucose (74-106) mg/dL POC Glucose 296 H (70-105) mg/dL Calcium (8.5-10.1) mg/dL Magnesium (1.8-2.4) mg/dl C-Reactive Protein (<1.0) mg/dL Blood Type O POSITIVE Gel Antibody Screen Negative 08/21/17 08/21/17 08/21/17 Range/Units 06:02 06:03 06:31 WBC 10.03 (3.98-10.04) K/mm3 RBC 4.32 (3.98-5.22) M/mm3 Hgb 11.8 (11.2-15.7) gm/L Hct 37.2 (34.1-44.9) % MCV 86.1 (79.4-94.8) fl MCH 27.3 (25.6-32.2) pg MCHC 31.7 L (32.2-35.5) g/dl RDW Std Deviation 45.4 (36.4-46.3) fL Plt Count 164 L (182-369) K/mm3 MPV 10.2 (9.4-12.3) fl Neut % (Auto) 81.3 H (34.0-71.1) % Lymph % (Auto) 8.7 L (19.3-51.7) % Bureau % (Auto) 9.1 (4.7-12.5) % Eos % (Auto) 0.5 L (0.7-5.8) Baso % (Auto) 0.1 (0.1-1.2) % Neut # (Auto) 8.16 H (1.56-6.13) K/mm3 Lymph # (Auto) 0.87 L (1.18-3.74) K/mm3 Bureau # (Auto) 0.91 H (0.24-0.36) K/mm3 Eos # (Auto) 0.05 (0.04-0.36) K/mm3 Baso # (Auto) 0.01 (0.01-0.08) K/mm3 Manual Slide Review Abnormal smear Sodium 141 (136-145) mEq/L Potassium 4.4 (3.5-5.1) mEq/L Chloride 109 H (98-107) mEq/L Carbon Dioxide 20 L (21-32) mEq/L Anion Gap 16.4 H (5-15) BUN 24 H (7-18) mg/dL Creatinine 1.2 H (0.55-1.02) mg/dL Est Cr Clr Drug Dosing 45.98 mL/min Estimated GFR (MDRD) 46 (>60) mL/min BUN/Creatinine Ratio 20.0 H (14-18) Glucose 293 H (74-106) mg/dL POC Glucose 267 H (70-105) mg/dL Calcium 7.9 L (8.5-10.1) mg/dL Magnesium 1.7 L (1.8-2.4) mg/dl C-Reactive Protein 9.1 H* (<1.0) mg/dL Blood Type Gel Antibody Screen 08/21/17 08/21/17 Range/Units 10:38 13:14 WBC (3.98-10.04) K/mm3 RBC (3.98-5.22) M/mm3 Hgb 10.9 L (11.2-15.7) gm/L Hct (34.1-44.9) % MCV (79.4-94.8) fl MCH (25.6-32.2) pg MCHC (32.2-35.5) g/dl RDW Std Deviation (36.4-46.3) fL Plt Count (182-369) K/mm3 MPV (9.4-12.3) fl Neut % (Auto) (34.0-71.1) % Lymph % (Auto) (19.3-51.7) % Bureau % (Auto) (4.7-12.5) % Eos % (Auto) (0.7-5.8) Baso % (Auto) (0.1-1.2) % Neut # (Auto) (1.56-6.13) K/mm3 Lymph # (Auto) (1.18-3.74) K/mm3 Bureau # (Auto) (0.24-0.36) K/mm3 Eos # (Auto) (0.04-0.36) K/mm3 Baso # (Auto) (0.01-0.08) K/mm3 Manual Slide Review Sodium (136-145) mEq/L Potassium (3.5-5.1) mEq/L Chloride (98-107) mEq/L Carbon Dioxide (21-32) mEq/L Anion Gap (5-15) BUN (7-18) mg/dL Creatinine (0.55-1.02) mg/dL Est Cr Clr Drug Dosing mL/min Estimated GFR (MDRD) (>60) mL/min BUN/Creatinine Ratio (14-18) Glucose (74-106) mg/dL POC Glucose 246 H (70-105) mg/dL Calcium (8.5-10.1) mg/dL Magnesium (1.8-2.4) mg/dl C-Reactive Protein (<1.0) mg/dL Blood Type Gel Antibody Screen Med Orders - Current: Current Medications Acetaminophen (Tylenol) 650 mg PO Q4H PRN PRN Reason: Pain (Mild 1-3)/fever Hydrocodone Bitart/Acetaminophen ([place] 325-5 Mg) 1 tab PO Q4H PRN PRN Reason: Pain (moderate 4-6) Albuterol/Ipratropium (Duoneb 3.0-0.5 Mg/3 Ml) 3 ml NEB Q4H PRN PRN Reason: Shortness Of Breath/wheezing Dextrose/Water (Dextrose 50% In Water) 50 ml IVPUSH ASDIRECTED PRN PRN Reason: Hypoglycemia Hydralazine HCl (Apresoline) 20 mg IVPUSH Q4H PRN PRN Reason: Hypertension Hydromorphone HCl (Dilaudid) 0.25 mg IVPUSH Q2H PRN PRN Reason: Pain (severe 7-10) Last Admin: 08/20/17 21:08 Dose: 0.25 mg Promethazine HCl 12.5 mg/ (Sodium Chloride) 50.5 mls @ 100 mls/hr IV Q6H PRN PRN Reason: Nausea/Vomiting Dextrose/Sodium Chloride (Dextrose 5%-Normal Saline) 1,000 mls @ 100 mls/hr IV ASDIRECTED [facility] Last Admin: 08/21/17 09:12 Dose: 100 mls/hr Insulin Aspart (Novolog) 0 unit SUBCUT QIDACANDBED EN PRN Reason: Protocol Last Admin: 08/21/17 10:47 Dose: 2 unit Magnesium Sulfate (Pharmacy To Dose - Magnesium Replacement) 1 dose .XX ASDIRECTED [facility] Metoprolol Tartrate (Lopressor) 5 mg IVPUSH Q4H PRN PRN Reason: Tachycardia Ondansetron HCl (Zofran) 4 mg IV Q4H PRN PRN Reason: Nausea/Vomiting Pantoprazole Sodium (Protonix Iv) 40 mg IV Q12H [facility] Stop: 08/22/17 09:01 Last Admin: 08/21/17 09:13 Dose: 40 mg Potassium Chloride (Pharmacy To Dose - Potassium Replacement) 1 dose .XX ASDIRECTED [facility] Sodium Chloride (Saline Flush) 10 ml FLUSH ASDIRECTED PRN PRN Reason: Keep Vein Open Last Admin: 08/20/17 16:00 Dose: 10 ml Temazepam (Restoril) 15 mg PO BEDTIME PRN PRN Reason: Sleep Last Admin: 08/20/17 21:09 Dose: 15 mg Discontinued Medications Famotidine (Pepcid) 20 mg IVPUSH ONETIME ONE Stop: 08/20/17 15:55 Last Admin: 08/20/17 16:05 Dose: 20 mg Hydromorphone HCl (Dilaudid) 0.25 mg IVPUSH ONETIME ONE Stop: 08/20/17 16:10 Last Admin: 08/20/17 16:37 Dose: 0.25 mg Hydromorphone HCl (Dilaudid) 0.25 mg IVPUSH ONETIME ONE Stop: 08/20/17 17:35 Last Admin: 08/20/17 17:50 Dose: 0.25 mg Sodium Chloride (Normal Saline) 1,000 mls @ 999 mls/hr IV ONETIME [facility] Last Admin: 08/20/17 15:59 Dose: 999 mls/hr Sodium Chloride (Normal Saline) Confirm Administered Dose 1,000 mls @ as directed .ROUTE .STK-MED ONE Stop: 08/20/17 15:59 Last Admin: 08/20/17 16:00 Dose: Not Given Sodium Chloride (Normal Saline) 1,000 mls @ 999 mls/hr IV ONETIME ONE Stop: 08/20/17 17:08 Last Admin: 08/20/17 16:09 Dose: 999 mls/hr Sodium Chloride (Normal Saline) 1,000 mls @ 999 mls/hr IV ONETIME [facility] Last Admin: 08/20/17 17:45 Dose: 999 mls/hr Levofloxacin/Dextrose 500 mg/ (Premix) 100 mls @ 100 mls/hr IV ONETIME ONE Stop: 08/20/17 18:34 Last Admin: 08/20/17 17:55 Dose: 100 mls/hr Sodium Chloride (Normal Saline) 1,000 mls @ 100 mls/hr IV ASDIRECTED [facility] Stop: 08/22/17 09:29 Last Admin: 08/20/17 23:57 Dose: 100 mls/hr Magnesium Sulfate 2 gm/ Premix 50 mls @ 25 mls/hr IV ONETIME ONE Stop: 08/21/17 12:29 Last Admin: 08/21/17 10:45 Dose: 25 mls/hr Influenza Virus Vaccine (Pharmacy To Dose - Influenza Vaccine) 1 each IM ONETIME ONE Stop: 08/20/17 19:59 Influenza Virus Vaccine (Flulaval Quad [id number]) 60 mcg IM .ONCE ONE Stop: 08/20/17 20:16 Insulin Aspart (Novolog) 0 unit SUBCUT QIDACANDBED EN PRN Reason: Protocol Last Admin: 08/21/17 07:47 Dose: Not Given Magnesium Oxide (Magnesium Oxide) 800 mg PO ONETIME ONE Stop: 08/21/17 08:31 Last Admin: 08/21/17 10:03 Dose: Not Given Ondansetron HCl (Zofran) 4 mg IVPUSH ONETIME ONE Stop: 08/20/17 16:10 Last Admin: 08/20/17 16:35 Dose: 4 mg Pantoprazole Sodium (Protonix Iv) 40 mg IVPUSH ONETIME ONE Stop: 08/20/17 15:55 Last Admin: 08/20/17 16:03 Dose: 40 mg - Exam General: Alert, Oriented, Cooperative, No Acute Distress, Other (Obese) HEENT: Pupils Equal, Pupils Reactive, EOMI, Mucous Membr. Moist/[place] Neck: Supple, Trachea Midline, No JVD, No Thyromegaly Lungs: Clear to Auscultation, Normal Respiratory Effort Cardiovascular: Regular Rate, Regular Rhythm GI/Abdominal Exam: Normal Bowel Sounds, Soft, No Organomegaly, No Distention, No Abnormal Bruit, No Mass, Tender (lower abdomen). No: Guarding, Rigid, Rebound (Female) Exam: Deferred Back Exam: Normal Inspection, Decreased Range of Motion Extremities: Normal Inspection, Normal Range of Motion, Non-Tender, No Pedal Edema, Normal Capillary Refill Peripheral Pulses: 2+: Dorsalis Pedis (L), Dorsalis Pedis (R) Skin: Warm, Dry, Intact Neurological: No New Focal Deficit Psy/Mental Status: Alert, Normal Affect, Normal Mood - Problem List Review Problem List Initiated/Reviewed/Updated: Yes - My Orders Last 24 Hours: My Active Orders 08/20/17 20:07 Height and Weight [RC] 04 Oxygen Therapy [RC] PRN Up ad Milagro [RC] ASDIRECTED VTE/DVT Education [RC] 10, Vital Signs [RC] Q4HR Acetaminophen [Tylenol] 650 mg PO Q4H PRN Acetaminophen/HYDROcodone [[place] 325-5 MG] 1 tab PO Q4H PRN HYDROmorphone [Dilaudid] 0.25 mg IVPUSH Q2H PRN Ondansetron [Zofran] 4 mg IV Q4H PRN Promethazine [Phenergan] 12.5 mg Sodium Chloride 0.9% [Normal Saline] 50 ml IV Q6H Resuscitation Status Routine 08/20/17 20:08 Cardiac Monitoring [RC] CONTINUOUS Intake and Output [RC] 04,16 Sequential Compression Device [OM.PC] Per Unit Routine 08/20/17 20:09 Albuterol/Ipratropium [DuoNeb 3.0-0.5 MG/3 ML] 3 ml NEB Q4H PRN Temazepam [Restoril] 15 mg PO BEDTIME PRN 08/20/17 20:10 Antiembolic Devices [RC] QSHIFT RT Aerosol Therapy [RC] ASDIRECTED 08/20/17 20:13 Metoprolol Tartrate [Lopressor] 5 mg IVPUSH Q4H PRN hydrALAZINE [Apresoline] 20 mg IVPUSH Q4H PRN 08/20/17 20:15 FECAL LACTOFERRIN [MREF] Stat Magnesium Rep Pharmacy to Dose [Pharmacy to Dose - Magnesium Replacement] 1 dose .XX ASDIRECTED Potassium Rep Pharmacy to Dose [Pharmacy to Dose - Potassium Replacement] 1 dose .XX ASDIRECTED 08/20/17 20:38 Blood Glucose Check, Bedside [RC] QIDACANDBED Dextrose 50% in Water 50 ml IVPUSH ASDIRECTED PRN 08/20/17 21:00 Pantoprazole [ProTONIX IV] 40 mg IV Q12H 08/20/17 23:30 Insulin Aspart [NovoLOG] 0 unit SUBCUT QIDACANDBED 08/20/17 Dinner Nothing per Oral Now Diet [DIET] 08/21/17 09:15 Dextrose 5%-0.9% NaCl [Dextrose 5%-Normal Saline] 1,000 ml IV ASDIRECTED 08/22/17 05:11 BASIC METABOLIC PANEL,BMP [CHEM] AM CBC WITH AUTO DIFF [HEME] AM MAGNESIUM [CHEM] AM 08/23/17 05:11 BASIC METABOLIC PANEL,BMP [CHEM] AM CBC WITH AUTO DIFF [HEME] AM MAGNESIUM [CHEM] AM 08/24/17 05:11 BASIC METABOLIC PANEL,BMP [CHEM] AM CBC WITH AUTO DIFF [HEME] AM MAGNESIUM [CHEM] AM 08/25/17 05:11 BASIC METABOLIC PANEL,BMP [CHEM] AM MAGNESIUM [CHEM] AM - Plan Plan:: I/P: Acute: GI Bleed -Diverticulosis vs Inflammatory -Cannot r/o Malignancy; she has not had screening EGD -No FM hx/o GI CA -Multiple episodes of bloody and watery alternating diarrhea in ED and prior to arrival -Generalized abdominal pain/guarding -Nausea but no vomiting, afebrile -PT 42.2, INR 3.57, APTT 42 - not on any blood thinners -Hgb 14.7-->13.5--> 10.9 (Stable) -S/p 2L fluid bolus in ED -Type and screen -Fecal lactoferrin pendning -Continue IVF/PPIs and Supportive Care -Consider GS consult Acute Kidney Injury, Improving -2/2 above from volume depletion -BUN 29 -Creatinine 1.6 -eGFR 33 -Continue hydration Hypomagnesemia and Hypocalcemia -2/2 GI Loss and No Intake -Replete and Monitor Permissive Hyperglycemia with DM2 -She is currently on D5W/NS for nutritional sustenance -Hold diabetic meds, she is still npo -Accu-check with ISS QID AC and HS AG-MA -2/2 GI Bleed and MARU -She is currently hydrating -Likely to get better as her GI bleed resolves Resolved: Leukocytosis -Stress vs Inflammatory (CRP is normal) -? Foodborne infection vs other cause -Reportedly ate potato salad prior to events -WBC 22.85 -->13.62--> 10.3 -CRP 0.8 (normal) -Levaquin given in ED; antibiotic is not indicated -Stool culture obtained in ED - pending Dehydration -2/2 Intravascular Volume Depletion -Elevated Anion gap (18.0), Creatinine (1.6), Hct (45.8), hypotensive (87/58) , lightheaded and dizzy in ED -Multiple episodes of diarrhea -Very dry mucous membranes -2 L NS given in ED -Electrolytes look good -IV fluids as ordered -Monitor Chronic: Type II DM - sliding scale insulin and glucose checks as ordered HLD HTN Arthritis s/p LAP BAND surgery Plan: She is clinically and hemodynamically stable Continue current treatment Routine AM labs Other orders as indicated above DVT/PE prophylaxis: SCDs CM for discharge planning Home medications as ordered Code Status: FULL CODE. Her PCP is Dr. Stallings at [facility] here in [place].
[2017-08-22] MEDS: Dextrose 5%-0.9% NaCl 1,000 ML IV SCH ×2 (04:32→15:33)
[2017-08-22] MEDS: Insulin Aspart 100 Units/ML 3 ML Pen SUBCUT SCH ×4 (06:25→21:02)
--- NOTE | 2017-08-22 07:47 | PCM.PN ---
- General Info Date of Service: 08/22/17 Admission Dx/Problem (Free Text): GI Bleeding Subjective Update: Follow up Functional Status: Reports: Pain Controlled, Ambulating, Urinating. Denies: New Symptoms - Review of Systems General: Denies: Fever, Weakness, Fatigue, Malaise HEENT: Reports: No Symptoms Pulmonary: Denies: Shortness of Breath Cardiovascular: Denies: Chest Pain Gastrointestinal: Reports: Abdominal Pain, Flatus, Other (rectal bleed with mucous). Denies: Decreased Appetite, Diarrhea, Melena, Nausea, Vomiting Genitourinary: Reports: No Symptoms Musculoskeletal: Reports: No Symptoms Skin: Reports: No Symptoms Neurological: Denies: Confusion, Difficulty Walking, Weakness, Gait Disturbance Psychiatric: Denies: Depression, Anxiety, Agitation, Hallucinations Systems Review Comment:: She has had small rectal bleed overnight x2. This morning she has another episode but her stool looked like reddish sediments. Her Hgb is stable at 10.2. She remains afebrile w/o leukocytosis. She reports no new complaints. - Patient Data Vitals - Most Recent: Last Vital Signs Temp 36.8 C 08/22/17 07:30 Pulse 74 08/22/17 07:30 Resp 16 08/22/17 07:30 BP 153/73 H 08/22/17 07:30 Pulse Ox 94 L 08/22/17 07:30 Weight - Most Recent: 100.199 kg I&O - Last 24 Hours: Intake & Output 08/21/17 08/22/17 08/22/17 22:59 06:59 14:59 Intake Total 832 1020 Output Total 300 200 Balance 532 820 Lab Results Last 24 Hours: Laboratory Results - last 24 hr 08/21/17 08/21/17 08/21/17 Range/Units 10:38 13:14 16:49 WBC (3.98-10.04) K/mm3 RBC (3.98-5.22) M/mm3 Hgb 10.9 L (11.2-15.7) gm/L Hct (34.1-44.9) % MCV (79.4-94.8) fl MCH (25.6-32.2) pg MCHC (32.2-35.5) g/dl RDW Std Deviation (36.4-46.3) fL Plt Count (182-369) K/mm3 MPV (9.4-12.3) fl Neut % (Auto) (34.0-71.1) % Lymph % (Auto) (19.3-51.7) % [place] % (Auto) (4.7-12.5) % Eos % (Auto) (0.7-5.8) Baso % (Auto) (0.1-1.2) % Neut # (Auto) (1.56-6.13) K/mm3 Lymph # (Auto) (1.18-3.74) K/mm3 [place] # (Auto) (0.24-0.36) K/mm3 Eos # (Auto) (0.04-0.36) K/mm3 Baso # (Auto) (0.01-0.08) K/mm3 Sodium (136-145) mEq/L Potassium (3.5-5.1) mEq/L Chloride (98-107) mEq/L Carbon Dioxide (21-32) mEq/L Anion Gap (5-15) BUN (7-18) mg/dL Creatinine (0.55-1.02) mg/dL Est Cr Clr Drug Dosing mL/min Estimated GFR (MDRD) (>60) mL/min BUN/Creatinine Ratio (14-18) Glucose (74-106) mg/dL POC Glucose 246 H 210 H (70-105) mg/dL Calcium (8.5-10.1) mg/dL Magnesium (1.8-2.4) mg/dl 08/21/17 08/22/17 08/22/17 Range/Units 20:56 05:59 05:59 WBC 7.07 (3.98-10.04) K/mm3 RBC 3.65 L (3.98-5.22) M/mm3 Hgb 10.2 L (11.2-15.7) gm/L Hct 31.8 L (34.1-44.9) % MCV 87.1 (79.4-94.8) fl MCH 27.9 (25.6-32.2) pg MCHC 32.1 L (32.2-35.5) g/dl RDW Std Deviation 44.4 (36.4-46.3) fL Plt Count 136 L (182-369) K/mm3 MPV 10.1 (9.4-12.3) fl Neut % (Auto) 70.8 (34.0-71.1) % Lymph % (Auto) 17.1 L (19.3-51.7) % [place] % (Auto) 7.5 (4.7-12.5) % Eos % (Auto) 4.2 (0.7-5.8) Baso % (Auto) 0.3 (0.1-1.2) % Neut # (Auto) 5.00 (1.56-6.13) K/mm3 Lymph # (Auto) 1.21 (1.18-3.74) K/mm3 [place] # (Auto) 0.53 H (0.24-0.36) K/mm3 Eos # (Auto) 0.30 (0.04-0.36) K/mm3 Baso # (Auto) 0.02 (0.01-0.08) K/mm3 Sodium 141 (136-145) mEq/L Potassium 3.6 (3.5-5.1) mEq/L Chloride 109 H (98-107) mEq/L Carbon Dioxide 22 (21-32) mEq/L Anion Gap 13.6 (5-15) BUN 8 (7-18) mg/dL Creatinine 0.8 (0.55-1.02) mg/dL Est Cr Clr Drug Dosing 68.97 mL/min Estimated GFR (MDRD) > 60 (>60) mL/min BUN/Creatinine Ratio 10.0 L (14-18) Glucose 235 H (74-106) mg/dL POC Glucose 209 H (70-105) mg/dL Calcium 7.8 L (8.5-10.1) mg/dL Magnesium 1.7 L (1.8-2.4) mg/dl 08/22/17 Range/Units 06:23 WBC (3.98-10.04) K/mm3 RBC (3.98-5.22) M/mm3 Hgb (11.2-15.7) gm/L Hct (34.1-44.9) % MCV (79.4-94.8) fl MCH (25.6-32.2) pg MCHC (32.2-35.5) g/dl RDW Std Deviation (36.4-46.3) fL Plt Count (182-369) K/mm3 MPV (9.4-12.3) fl Neut % (Auto) (34.0-71.1) % Lymph % (Auto) (19.3-51.7) % [place] % (Auto) (4.7-12.5) % Eos % (Auto) (0.7-5.8) Baso % (Auto) (0.1-1.2) % Neut # (Auto) (1.56-6.13) K/mm3 Lymph # (Auto) (1.18-3.74) K/mm3 [place] # (Auto) (0.24-0.36) K/mm3 Eos # (Auto) (0.04-0.36) K/mm3 Baso # (Auto) (0.01-0.08) K/mm3 Sodium (136-145) mEq/L Potassium (3.5-5.1) mEq/L Chloride (98-107) mEq/L Carbon Dioxide (21-32) mEq/L Anion Gap (5-15) BUN (7-18) mg/dL Creatinine (0.55-1.02) mg/dL Est Cr Clr Drug Dosing mL/min Estimated GFR (MDRD) (>60) mL/min BUN/Creatinine Ratio (14-18) Glucose (74-106) mg/dL POC Glucose 230 H (70-105) mg/dL Calcium (8.5-10.1) mg/dL Magnesium (1.8-2.4) mg/dl Med Orders - Current: Current Medications Acetaminophen (Tylenol) 650 mg PO Q4H PRN PRN Reason: Pain (Mild 1-3)/fever Hydrocodone Bitart/Acetaminophen ([place] 325-5 Mg) 1 tab PO Q4H PRN PRN Reason: Pain (moderate 4-6) Albuterol/Ipratropium (Duoneb 3.0-0.5 Mg/3 Ml) 3 ml NEB Q4H PRN PRN Reason: Shortness Of Breath/wheezing Dextrose/Water (Dextrose 50% In Water) 50 ml IVPUSH ASDIRECTED PRN PRN Reason: Hypoglycemia Hydralazine HCl (Apresoline) 20 mg IVPUSH Q4H PRN PRN Reason: Hypertension Hydromorphone HCl (Dilaudid) 0.25 mg IVPUSH Q2H PRN PRN Reason: Pain (severe 7-10) Last Admin: 08/20/17 21:08 Dose: 0.25 mg Promethazine HCl 12.5 mg/ (Sodium Chloride) 50.5 mls @ 100 mls/hr IV Q6H PRN PRN Reason: Nausea/Vomiting Dextrose/Sodium Chloride (Dextrose 5%-Normal Saline) 1,000 mls @ 100 mls/hr IV ASDIRECTED [facility] Last Admin: 08/22/17 04:32 Dose: 100 mls/hr Insulin Aspart (Novolog) 0 unit SUBCUT QIDACANDBED [facility] PRN Reason: Protocol Last Admin: 08/22/17 06:25 Dose: 2 unit Magnesium Sulfate (Pharmacy To Dose - Magnesium Replacement) 1 dose .XX ASDIRECTED [facility] Metoprolol Tartrate (Lopressor) 5 mg IVPUSH Q4H PRN PRN Reason: Tachycardia Ondansetron HCl (Zofran) 4 mg IV Q4H PRN PRN Reason: Nausea/Vomiting Pantoprazole Sodium (Protonix Iv) 40 mg IV Q12H [facility] Stop: 08/22/17 09:01 Last Admin: 08/21/17 20:52 Dose: 40 mg Potassium Chloride (Pharmacy To Dose - Potassium Replacement) 1 dose .XX ASDIRECTED [facility] Sodium Chloride (Saline Flush) 10 ml FLUSH ASDIRECTED PRN PRN Reason: Keep Vein Open Last Admin: 08/20/17 16:00 Dose: 10 ml Temazepam (Restoril) 15 mg PO BEDTIME PRN PRN Reason: Sleep Last Admin: 08/20/17 21:09 Dose: 15 mg Discontinued Medications Famotidine (Pepcid) 20 mg IVPUSH ONETIME ONE Stop: 08/20/17 15:55 Last Admin: 08/20/17 16:05 Dose: 20 mg Hydromorphone HCl (Dilaudid) 0.25 mg IVPUSH ONETIME ONE Stop: 08/20/17 16:10 Last Admin: 08/20/17 16:37 Dose: 0.25 mg Hydromorphone HCl (Dilaudid) 0.25 mg IVPUSH ONETIME ONE Stop: 08/20/17 17:35 Last Admin: 08/20/17 17:50 Dose: 0.25 mg Sodium Chloride (Normal Saline) 1,000 mls @ 999 mls/hr IV ONETIME [facility] Last Admin: 08/20/17 15:59 Dose: 999 mls/hr Sodium Chloride (Normal Saline) Confirm Administered Dose 1,000 mls @ as directed .ROUTE .STK-MED ONE Stop: 08/20/17 15:59 Last Admin: 08/20/17 16:00 Dose: Not Given Sodium Chloride (Normal Saline) 1,000 mls @ 999 mls/hr IV ONETIME ONE Stop: 08/20/17 17:08 Last Admin: 08/20/17 16:09 Dose: 999 mls/hr Sodium Chloride (Normal Saline) 1,000 mls @ 999 mls/hr IV ONETIME [facility] Last Admin: 08/20/17 17:45 Dose: 999 mls/hr Levofloxacin/Dextrose 500 mg/ (Premix) 100 mls @ 100 mls/hr IV ONETIME ONE Stop: 08/20/17 18:34 Last Admin: 08/20/17 17:55 Dose: 100 mls/hr Sodium Chloride (Normal Saline) 1,000 mls @ 100 mls/hr IV ASDIRECTED [facility] Stop: 08/22/17 09:29 Last Admin: 08/20/17 23:57 Dose: 100 mls/hr Magnesium Sulfate 2 gm/ Premix 50 mls @ 25 mls/hr IV ONETIME ONE Stop: 08/21/17 12:29 Last Admin: 08/21/17 10:45 Dose: 25 mls/hr Influenza Virus Vaccine (Pharmacy To Dose - Influenza Vaccine) 1 each IM ONETIME ONE Stop: 08/20/17 19:59 Influenza Virus Vaccine (Flulaval Quad [id number]) 60 mcg IM .ONCE ONE Stop: 08/20/17 20:16 Insulin Aspart (Novolog) 0 unit SUBCUT QIDACANDBED [facility] PRN Reason: Protocol Last Admin: 08/21/17 07:47 Dose: Not Given Magnesium Oxide (Magnesium Oxide) 800 mg PO ONETIME ONE Stop: 08/21/17 08:31 Last Admin: 08/21/17 10:03 Dose: Not Given Ondansetron HCl (Zofran) 4 mg IVPUSH ONETIME ONE Stop: 08/20/17 16:10 Last Admin: 08/20/17 16:35 Dose: 4 mg Pantoprazole Sodium (Protonix Iv) 40 mg IVPUSH ONETIME ONE Stop: 08/20/17 15:55 Last Admin: 08/20/17 16:03 Dose: 40 mg - Exam General: Alert, Oriented, Cooperative, No Acute Distress, Other (Obese) HEENT: Pupils Equal, Pupils Reactive, EOMI, Mucous Membr. Moist/[place] Neck: Supple, Trachea Midline, No JVD Lungs: Clear to Auscultation, Normal Respiratory Effort Cardiovascular: Regular Rate, Regular Rhythm GI/Abdominal Exam: Normal Bowel Sounds, Soft, No Organomegaly, No Distention, No Abnormal Bruit, Tender (lower abdomen). No: Distended, Guarding, Rigid, Rebound (Female) Exam: Deferred Back Exam: Normal Inspection, Decreased Range of Motion Extremities: Normal Inspection, Normal Range of Motion, Non-Tender, No Pedal Edema, Normal Capillary Refill Peripheral Pulses: 2+: Dorsalis Pedis (L), Dorsalis Pedis (R) Skin: Warm, Dry, Intact Neurological: No New Focal Deficit Psy/Mental Status: Alert, Normal Affect, Normal Mood - Problem List Review Problem List Initiated/Reviewed/Updated: Yes - My Orders Last 24 Hours: My Active Orders 08/21/17 09:15 Dextrose 5%-0.9% NaCl [Dextrose 5%-Normal Saline] 1,000 ml IV ASDIRECTED 08/23/17 05:11 BASIC METABOLIC PANEL,BMP [CHEM] AM CBC WITH AUTO DIFF [HEME] AM MAGNESIUM [CHEM] AM 08/24/17 05:11 BASIC METABOLIC PANEL,BMP [CHEM] AM CBC WITH AUTO DIFF [HEME] AM MAGNESIUM [CHEM] AM 08/25/17 05:11 BASIC METABOLIC PANEL,BMP [CHEM] AM MAGNESIUM [CHEM] AM - Plan Plan:: I/P: Acute: Abdominal Pain -Likely 2/2 below -Abn/Pelvis CT scan orders -PRN pain medications -Dr. Flanagan consulted GI Bleed, Slow and Persistent -Diverticulosis vs Inflammatory -Cannot r/o Malignancy; she has not had screening EGD -No FM hx/o GI CA -Multiple episodes of bloody and watery alternating diarrhea in ED and prior to arrival -Lower abdominal pain -No nausea/vomiting, afebrile -PT 42.2, INR 3.57, APTT 42 - not on any blood thinners -Hgb 14.7-->13.5--> 10.9--> 10.2 (Stable) -S/p 2L fluid bolus in ED -Type and screen -Fecal lactoferrin positive (inflammatory?) -Continue IVF/PPIs and Supportive Care -GS consulted with Dr. Flanagan Hypomagnesemia and Hypocalcemia -2/2 GI Loss and No Intake -Replete and Monitor Permissive Hyperglycemia with DM2 -She is currently on D5W/NS for nutritional sustenance -Hold diabetic meds, she is still npo -Accu-check with ISS QID AC and HS Resolved: Leukocytosis -Stress vs Inflammatory (CRP is normal) -? Foodborne infection vs other cause -Reportedly ate potato salad prior to events -WBC 22.85 -->13.62--> 10.3 -CRP 0.8 (normal) -Levaquin given in ED; antibiotic is not indicated -Stool culture obtained in ED - pending Dehydration -2/2 Intravascular Volume Depletion -Elevated Anion gap (18.0), Creatinine (1.6), Hct (45.8), hypotensive (87/58) , lightheaded and dizzy in ED -Multiple episodes of diarrhea -Very dry mucous membranes -2 L NS given in ED -Electrolytes look good -IV fluids as ordered -Monitor S/p Acute Kidney Injury, Improving -2/2 above from volume depletion -BUN 29 -Creatinine 1.6 -eGFR 33 -Continue hydration S/p AG-MA -2/2 GI Bleed and MARU -She is currently hydrating -Likely to get better as her GI bleed resolves Chronic: Type II DM - sliding scale insulin and glucose checks as ordered HLD HTN Arthritis s/p LAP BAND surgery Plan: She remains clinically and hemodynamically stable Continue current treatment Routine AM labs Dr. Flanagan consulted Abdominal/Pelvis CT scan pending Other orders as indicated above DVT/PE prophylaxis: SCDs CM for discharge planning Home medications as ordered Code Status: FULL CODE. Her PCP is Dr. Stallings at [facility] here in [place].
[2017-08-22] MEDS: Pantoprazole 40 MG Vial IV SCH (08:12)
[2017-08-22] MEDS: hydrALAZINE 20 MG/ML SDV IVPUSH PRN ×2 (08:13→15:39)
[2017-08-22] MEDS ORDERED: Magnesium Sulfate/Water 2 GM in Premix Bag 1 BAG IV ONE (08:30)
[2017-08-22] MEDS ORDERED: Potassium Chloride 20 MEQ Tab.ER PO SCH (09:00)
[2017-08-22] MEDS ORDERED: Oxymetazoline 0.05% Nasal Spray 15 ML Bottle NAS PRN (09:39)
--- NOTE | 2017-08-22 13:41 | PCM.CONSN ---
- General Info Date of Service: 08/22/17 - Patient Data Vitals - Most Recent: Last Vital Signs Temp 98.2 F 08/22/17 07:30 Pulse 87 08/22/17 11:17 Resp 16 08/22/17 11:17 BP 157/83 H 08/22/17 11:17 Pulse Ox 95 08/22/17 11:17 Weight - Most Recent: 100.199 kg I&O - Last 24 Hours: Intake & Output 08/21/17 08/22/17 08/22/17 23:59 07:59 15:59 Intake Total 832 1020 40 Output Total 300 200 200 Balance 532 820 -160 Lab Results Last 24 Hours: Laboratory Results - last 24 hr 08/21/17 08/21/17 08/22/17 Range/Units 16:49 20:56 05:59 WBC 7.07 (3.98-10.04) K/mm3 RBC 3.65 L (3.98-5.22) M/mm3 Hgb 10.2 L (11.2-15.7) gm/L Hct 31.8 L (34.1-44.9) % MCV 87.1 (79.4-94.8) fl MCH 27.9 (25.6-32.2) pg MCHC 32.1 L (32.2-35.5) g/dl RDW Std Deviation 44.4 (36.4-46.3) fL Plt Count 136 L (182-369) K/mm3 MPV 10.1 (9.4-12.3) fl Neut % (Auto) 70.8 (34.0-71.1) % Lymph % (Auto) 17.1 L (19.3-51.7) % [place] % (Auto) 7.5 (4.7-12.5) % Eos % (Auto) 4.2 (0.7-5.8) Baso % (Auto) 0.3 (0.1-1.2) % Neut # (Auto) 5.00 (1.56-6.13) K/mm3 Lymph # (Auto) 1.21 (1.18-3.74) K/mm3 [place] # (Auto) 0.53 H (0.24-0.36) K/mm3 Eos # (Auto) 0.30 (0.04-0.36) K/mm3 Baso # (Auto) 0.02 (0.01-0.08) K/mm3 Sodium (136-145) mEq/L Potassium (3.5-5.1) mEq/L Chloride (98-107) mEq/L Carbon Dioxide (21-32) mEq/L Anion Gap (5-15) BUN (7-18) mg/dL Creatinine (0.55-1.02) mg/dL Est Cr Clr Drug Dosing mL/min Estimated GFR (MDRD) (>60) mL/min BUN/Creatinine Ratio (14-18) Glucose (74-106) mg/dL POC Glucose 210 H 209 H (70-105) mg/dL Calcium (8.5-10.1) mg/dL Magnesium (1.8-2.4) mg/dl 08/22/17 08/22/17 08/22/17 Range/Units 05:59 06:23 11:05 WBC (3.98-10.04) K/mm3 RBC (3.98-5.22) M/mm3 Hgb (11.2-15.7) gm/L Hct (34.1-44.9) % MCV (79.4-94.8) fl MCH (25.6-32.2) pg MCHC (32.2-35.5) g/dl RDW Std Deviation (36.4-46.3) fL Plt Count (182-369) K/mm3 MPV (9.4-12.3) fl Neut % (Auto) (34.0-71.1) % Lymph % (Auto) (19.3-51.7) % [place] % (Auto) (4.7-12.5) % Eos % (Auto) (0.7-5.8) Baso % (Auto) (0.1-1.2) % Neut # (Auto) (1.56-6.13) K/mm3 Lymph # (Auto) (1.18-3.74) K/mm3 [place] # (Auto) (0.24-0.36) K/mm3 Eos # (Auto) (0.04-0.36) K/mm3 Baso # (Auto) (0.01-0.08) K/mm3 Sodium 141 (136-145) mEq/L Potassium 3.6 (3.5-5.1) mEq/L Chloride 109 H (98-107) mEq/L Carbon Dioxide 22 (21-32) mEq/L Anion Gap 13.6 (5-15) BUN 8 (7-18) mg/dL Creatinine 0.8 (0.55-1.02) mg/dL Est Cr Clr Drug Dosing 68.97 mL/min Estimated GFR (MDRD) > 60 (>60) mL/min BUN/Creatinine Ratio 10.0 L (14-18) Glucose 235 H (74-106) mg/dL POC Glucose 230 H 241 H (70-105) mg/dL Calcium 7.8 L (8.5-10.1) mg/dL Magnesium 1.7 L (1.8-2.4) mg/dl Sigifredo Results Last 24 Hours: Microbiology 08/20/17 20:15 Stool Lactoferrin - Final Stool / Feces Med Orders - Current: Current Medications Acetaminophen (Tylenol) 650 mg PO Q4H PRN PRN Reason: Pain (Mild 1-3)/fever Hydrocodone Bitart/Acetaminophen ([place] 325-5 Mg) 1 tab PO Q4H PRN PRN Reason: Pain (moderate 4-6) Albuterol/Ipratropium (Duoneb 3.0-0.5 Mg/3 Ml) 3 ml NEB Q4H PRN PRN Reason: Shortness Of Breath/wheezing Dextrose/Water (Dextrose 50% In Water) 50 ml IVPUSH ASDIRECTED PRN PRN Reason: Hypoglycemia Hydralazine HCl (Apresoline) 20 mg IVPUSH Q4H PRN PRN Reason: Hypertension Last Admin: 08/22/17 08:13 Dose: 20 mg Hydromorphone HCl (Dilaudid) 0.25 mg IVPUSH Q2H PRN PRN Reason: Pain (severe 7-10) Last Admin: 08/20/17 21:08 Dose: 0.25 mg Promethazine HCl 12.5 mg/ (Sodium Chloride) 50.5 mls @ 100 mls/hr IV Q6H PRN PRN Reason: Nausea/Vomiting Dextrose/Sodium Chloride (Dextrose 5%-Normal Saline) 1,000 mls @ 100 mls/hr IV ASDIRECTED EN Last Admin: 08/22/17 04:32 Dose: 100 mls/hr Insulin Aspart (Novolog) 0 unit SUBCUT QIDACANDBED EN PRN Reason: Protocol Last Admin: 08/22/17 11:10 Dose: 2 unit Magnesium Sulfate (Pharmacy To Dose - Magnesium Replacement) 1 dose .XX ASDIRECTED [facility] Metoprolol Tartrate (Lopressor) 5 mg IVPUSH Q4H PRN PRN Reason: Tachycardia Ondansetron HCl (Zofran) 4 mg IV Q4H PRN PRN Reason: Nausea/Vomiting Oxymetazoline HCl (Afrin Original 0.05% Nasal [place]) 0 ml JOE Q12HR PRN PRN Reason: Congestion Last Admin: 08/22/17 10:01 Dose: 2 spray Potassium Chloride (Pharmacy To Dose - Potassium Replacement) 1 dose .XX ASDIRECTED [facility] Sodium Chloride (Saline Flush) 10 ml FLUSH ASDIRECTED PRN PRN Reason: Keep Vein Open Last Admin: 08/20/17 16:00 Dose: 10 ml Temazepam (Restoril) 15 mg PO BEDTIME PRN PRN Reason: Sleep Last Admin: 08/20/17 21:09 Dose: 15 mg Discontinued Medications Famotidine (Pepcid) 20 mg IVPUSH ONETIME ONE Stop: 08/20/17 15:55 Last Admin: 08/20/17 16:05 Dose: 20 mg Hydromorphone HCl (Dilaudid) 0.25 mg IVPUSH ONETIME ONE Stop: 08/20/17 16:10 Last Admin: 08/20/17 16:37 Dose: 0.25 mg Hydromorphone HCl (Dilaudid) 0.25 mg IVPUSH ONETIME ONE Stop: 08/20/17 17:35 Last Admin: 08/20/17 17:50 Dose: 0.25 mg Sodium Chloride (Normal Saline) 1,000 mls @ 999 mls/hr IV ONETIME EN Last Admin: 08/20/17 15:59 Dose: 999 mls/hr Sodium Chloride (Normal Saline) Confirm Administered Dose 1,000 mls @ as directed .ROUTE .STK-MED ONE Stop: 08/20/17 15:59 Last Admin: 08/20/17 16:00 Dose: Not Given Sodium Chloride (Normal Saline) 1,000 mls @ 999 mls/hr IV ONETIME ONE Stop: 08/20/17 17:08 Last Admin: 08/20/17 16:09 Dose: 999 mls/hr Sodium Chloride (Normal Saline) 1,000 mls @ 999 mls/hr IV ONETIME [facility] Last Admin: 08/20/17 17:45 Dose: 999 mls/hr Levofloxacin/Dextrose 500 mg/ (Premix) 100 mls @ 100 mls/hr IV ONETIME ONE Stop: 08/20/17 18:34 Last Admin: 08/20/17 17:55 Dose: 100 mls/hr Sodium Chloride (Normal Saline) 1,000 mls @ 100 mls/hr IV ASDIRECTED [facility] Stop: 08/22/17 09:29 Last Admin: 08/20/17 23:57 Dose: 100 mls/hr Magnesium Sulfate 2 gm/ Premix 50 mls @ 25 mls/hr IV ONETIME ONE Stop: 08/21/17 12:29 Last Admin: 08/21/17 10:45 Dose: 25 mls/hr Magnesium Sulfate 2 gm/ Premix 50 mls @ 25 mls/hr IV ONETIME ONE Stop: 08/22/17 10:29 Last Admin: 08/22/17 09:32 Dose: 25 mls/hr Influenza Virus Vaccine (Pharmacy To Dose - Influenza Vaccine) 1 each IM ONETIME ONE Stop: 08/20/17 19:59 Influenza Virus Vaccine (Flulaval Quad [id number]) 60 mcg IM .ONCE ONE Stop: 08/20/17 20:16 Insulin Aspart (Novolog) 0 unit SUBCUT QIDACANDBED [facility] PRN Reason: Protocol Last Admin: 08/21/17 07:47 Dose: Not Given Magnesium Oxide (Magnesium Oxide) 800 mg PO ONETIME ONE Stop: 08/21/17 08:31 Last Admin: 08/21/17 10:03 Dose: Not Given Ondansetron HCl (Zofran) 4 mg IVPUSH ONETIME ONE Stop: 08/20/17 16:10 Last Admin: 08/20/17 16:35 Dose: 4 mg Pantoprazole Sodium (Protonix Iv) 40 mg IVPUSH ONETIME ONE Stop: 08/20/17 15:55 Last Admin: 08/20/17 16:03 Dose: 40 mg Pantoprazole Sodium (Protonix Iv) 40 mg IV Q12H [facility] Stop: 08/22/17 09:01 Last Admin: 08/22/17 08:12 Dose: 40 mg Potassium Chloride (Klor-Con M20) 40 meq PO Q4H EN Stop: 08/22/17 13:01 Last Admin: 08/22/17 09:27 Dose: Not Given Consult PN Assessment/Plan Problem List Initiated/Reviewed/Updated: Yes My Orders Last 24 Hours: My Active Orders 08/22/17 13:37 Abdomen Pelvis w Cont [CT] Urgent Plan: surgical consult dictated MICHELLE
[2017-08-22] MEDS ORDERED: Sodium Chloride 0.9% 10 ML Syringe FLUSH ONE (13:57)
[2017-08-22] MEDS ORDERED: Iopamidol 612 MG/ML 150 ML Bottle IVPUSH ONE (13:57)
[2017-08-22] MEDS ORDERED: Diatrizoate Meglumine/Diatrizoate Sodium 37% 120 ML Bottle PO ONE (13:57)
[2017-08-22] MEDS: Sodium Chloride 0.9% 10 ML Syringe FLUSH PRN (15:07)
--- NOTE | 2017-08-22 15:32 | CT ---
CT abdomen and pelvis Technique: Multiple axial sections were obtained from above the dome of the diaphragm inferiorly through the pubic symphysis. Intravenous and oral contrast was utilized. Delayed images were obtained through the bladder. Findings: Diffuse bowel wall thickening seen from the transverse colon through the sigmoid colon. Slight surrounding inflammatory change is seen. Visualized lung bases shows minimal bibasilar atelectasis. Liver shows no focal parenchymal abnormality. Spleen appears within normal limits. Small calcified granuloma is incidentally noted within the spleen. 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 Adrenal glands are otherwise unremarkable. Kidneys show symmetric contrast enhancement without hydronephrosis or mass. Pancreas appears normal. Aorta shows slight atherosclerotic change without aneurysmal dilatation. Appendix is seen which is normal. No retroperitoneal adenopathy is seen. Lap band is present. No pelvic mass or adenopathy is seen. No free fluid is seen. Bone window settings were reviewed which shows mild degenerative change scattered throughout the spine. Delayed images shows contrast within the distal ureters and bladder. Impression: 1. Diffuse bowel wall thickening within the transverse, descending and sigmoid colon compatible with a nonspecific colitis. 2. Other findings which are felt to be incidental as described above. Diagnostic code #3
[2017-08-22] MEDS ORDERED: Levofloxacin/Dextrose 5%-Water 500 MG in Premix Bag 1 BAG IV ONE (17:02)
[2017-08-22] MEDS: metroNIDAZOLE/Normal Saline 500 MG in Premix Bag 1 BAG IV SCH (18:34)
[2017-08-22] MEDS: Saccharomyces Boulardii (Probiotic) 250 MG Cap PO SCH (20:59)
[2017-08-22] MEDS: Temazepam 15 MG Cap PO PRN (22:01)
[2017-08-22] MEDS: amLODIPine 5 MG Tab PO SCH (22:02)
[2017-08-22] MEDS: Hydrochlorothiazide 25 MG Tab PO SCH (22:02)
[2017-08-22] MEDS: Lisinopril 20 MG Tab PO SCH (22:02)
[2017-08-23] MEDS: metroNIDAZOLE/Normal Saline 500 MG in Premix Bag 1 BAG IV SCH ×3 (02:43→17:44)
[2017-08-23] MEDS: Insulin Aspart 100 Units/ML 3 ML Pen SUBCUT SCH ×4 (06:04→21:27)
--- NOTE | 2017-08-23 06:43 | PCM.PN ---
- General Info Date of Service: 08/23/17 Admission Dx/Problem (Free Text): GI Bleeding Subjective Update: Follow up Functional Status: Reports: Pain Controlled, Tolerating Diet, Ambulating, Urinating. Denies: New Symptoms - Review of Systems General: Denies: Fever, Weakness, Fatigue, Malaise, Chills HEENT: Reports: No Symptoms Pulmonary: Denies: Shortness of Breath Cardiovascular: Denies: Chest Pain Gastrointestinal: Reports: Flatus. Denies: Abdominal Pain, Decreased Appetite, Diarrhea, Hematochezia, Melena, Nausea, Vomiting Genitourinary: Denies: No Symptoms Musculoskeletal: Denies: No Symptoms Skin: Denies: No Symptoms Neurological: Denies: Confusion, Difficulty Walking, Weakness, Gait Disturbance Psychiatric: Denies: Mood Lability, Anxiety, Agitation, Hallucinations Systems Review Comment:: Overnight she had 3 loose bowel w/p blood or melena. She feels pretty good and no acute issues this morning. Her morning elytes (Ca, K and Mg ) were all low this morning. She reports no new complaints. She is tolerating current diet. - Patient Data Vitals - Most Recent: Last Vital Signs Temp 37.7 C 08/23/17 04:00 Pulse 74 08/23/17 04:00 Resp 15 08/23/17 04:00 BP 135/71 08/23/17 04:00 Pulse Ox 96 08/23/17 04:00 Weight - Most Recent: 98.52 kg I&O - Last 24 Hours: Intake & Output 08/22/17 08/22/17 08/23/17 14:59 22:59 06:59 Intake Total 40 2517 1161 Output Total 200 1200 Balance -160 1317 1161 Lab Results Last 24 Hours: Laboratory Results - last 24 hr 08/22/17 08/22/17 08/22/17 Range/Units 05:59 11:05 17:25 Sodium 141 (136-145) mEq/L Potassium 3.6 (3.5-5.1) mEq/L Chloride 109 H (98-107) mEq/L Carbon Dioxide 22 (21-32) mEq/L Anion Gap 13.6 (5-15) BUN 8 (7-18) mg/dL Creatinine 0.8 (0.55-1.02) mg/dL Est Cr Clr Drug Dosing 68.97 mL/min Estimated GFR (MDRD) > 60 (>60) mL/min BUN/Creatinine Ratio 10.0 L (14-18) Glucose 235 H (74-106) mg/dL POC Glucose 241 H 218 H (70-105) mg/dL Calcium 7.8 L (8.5-10.1) mg/dL Magnesium 1.7 L (1.8-2.4) mg/dl 08/22/17 08/23/17 Range/Units 21:02 06:03 Sodium (136-145) mEq/L Potassium (3.5-5.1) mEq/L Chloride (98-107) mEq/L Carbon Dioxide (21-32) mEq/L Anion Gap (5-15) BUN (7-18) mg/dL Creatinine (0.55-1.02) mg/dL Est Cr Clr Drug Dosing mL/min Estimated GFR (MDRD) (>60) mL/min BUN/Creatinine Ratio (14-18) Glucose (74-106) mg/dL POC Glucose 233 H 204 H (70-105) mg/dL Calcium (8.5-10.1) mg/dL Magnesium (1.8-2.4) mg/dl Sigifredo Results Last 24 Hours: Microbiology 08/20/17 20:15 Stool Lactoferrin - Final Stool / Feces Med Orders - Current: Current Medications Acetaminophen (Tylenol) 650 mg PO Q4H PRN PRN Reason: Pain (Mild 1-3)/fever Hydrocodone Bitart/Acetaminophen ([place] 325-5 Mg) 1 tab PO Q4H PRN PRN Reason: Pain (moderate 4-6) Albuterol/Ipratropium (Duoneb 3.0-0.5 Mg/3 Ml) 3 ml NEB Q4H PRN PRN Reason: Shortness Of Breath/wheezing Amlodipine Besylate (Norvasc) 5 mg PO DAILY [facility] Last Admin: 08/22/17 22:02 Dose: 5 mg Dextrose/Water (Dextrose 50% In Water) 50 ml IVPUSH ASDIRECTED PRN PRN Reason: Hypoglycemia Hydralazine HCl (Apresoline) 20 mg IVPUSH Q4H PRN PRN Reason: Hypertension Last Admin: 08/22/17 15:39 Dose: 20 mg Hydrochlorothiazide (Hydrochlorothiazide) 12.5 mg PO DAILY [facility] Last Admin: 08/22/17 22:02 Dose: 12.5 mg Hydromorphone HCl (Dilaudid) 0.25 mg IVPUSH Q2H PRN PRN Reason: Pain (severe 7-10) Last Admin: 08/20/17 21:08 Dose: 0.25 mg Promethazine HCl 12.5 mg/ (Sodium Chloride) 50.5 mls @ 100 mls/hr IV Q6H PRN PRN Reason: Nausea/Vomiting Dextrose/Sodium Chloride (Dextrose 5%-Normal Saline) 1,000 mls @ 100 mls/hr IV ASDIRECTED [facility] Last Admin: 08/22/17 15:33 Dose: 100 mls/hr Levofloxacin/Dextrose 500 mg/ (Premix) 100 mls @ 100 mls/hr IV Q24H [facility] Metronidazole 500 mg/ Premix 100 mls @ 100 mls/hr IV Q8H [facility] Last Admin: 08/23/17 02:43 Dose: 100 mls/hr Insulin Aspart (Novolog) 0 unit SUBCUT QIDACANDBED [facility] PRN Reason: Protocol Last Admin: 08/23/17 06:04 Dose: 2 unit Lisinopril (Prinivil) 40 mg PO DAILY [facility] Last Admin: 08/22/17 22:02 Dose: 40 mg Magnesium Sulfate (Pharmacy To Dose - Magnesium Replacement) 1 dose .XX ASDIRECTED [facility] Metoprolol Tartrate (Lopressor) 5 mg IVPUSH Q4H PRN PRN Reason: Tachycardia Ondansetron HCl (Zofran) 4 mg IV Q4H PRN PRN Reason: Nausea/Vomiting Oxymetazoline HCl (Afrin Original 0.05% Nasal [place]) 0 ml JOE Q12HR PRN PRN Reason: Congestion Last Admin: 08/22/17 10:01 Dose: 2 spray Potassium Chloride (Pharmacy To Dose - Potassium Replacement) 1 dose .XX ASDIRECTED [facility] Saccharomyces Boulardii (Florastor) 250 mg PO BID [facility] Last Admin: 08/22/17 20:59 Dose: 250 mg Sodium Chloride (Saline Flush) 10 ml FLUSH ASDIRECTED PRN PRN Reason: Keep Vein Open Last Admin: 08/22/17 15:07 Dose: 10 ml Temazepam (Restoril) 15 mg PO BEDTIME PRN PRN Reason: Sleep Last Admin: 08/22/17 22:01 Dose: 15 mg Discontinued Medications Diatrizoate Meglum/Diatrizoate Sod (Gastrografin 37%) 90 ml PO ONETIME ONE Stop: 08/22/17 13:58 Last Admin: 08/22/17 15:07 Dose: 90 ml Famotidine (Pepcid) 20 mg IVPUSH ONETIME ONE Stop: 08/20/17 15:55 Last Admin: 08/20/17 16:05 Dose: 20 mg Hydromorphone HCl (Dilaudid) 0.25 mg IVPUSH ONETIME ONE Stop: 08/20/17 16:10 Last Admin: 08/20/17 16:37 Dose: 0.25 mg Hydromorphone HCl (Dilaudid) 0.25 mg IVPUSH ONETIME ONE Stop: 08/20/17 17:35 Last Admin: 08/20/17 17:50 Dose: 0.25 mg Sodium Chloride (Normal Saline) 1,000 mls @ 999 mls/hr IV ONETIME [facility] Last Admin: 08/20/17 15:59 Dose: 999 mls/hr Sodium Chloride (Normal Saline) Confirm Administered Dose 1,000 mls @ as directed .ROUTE .STK-MED ONE Stop: 08/20/17 15:59 Last Admin: 08/20/17 16:00 Dose: Not Given Sodium Chloride (Normal Saline) 1,000 mls @ 999 mls/hr IV ONETIME ONE Stop: 08/20/17 17:08 Last Admin: 08/20/17 16:09 Dose: 999 mls/hr Sodium Chloride (Normal Saline) 1,000 mls @ 999 mls/hr IV ONETIME [facility] Last Admin: 08/20/17 17:45 Dose: 999 mls/hr Levofloxacin/Dextrose 500 mg/ (Premix) 100 mls @ 100 mls/hr IV ONETIME ONE Stop: 08/20/17 18:34 Last Admin: 08/20/17 17:55 Dose: 100 mls/hr Sodium Chloride (Normal Saline) 1,000 mls @ 100 mls/hr IV ASDIRECTED [facility] Stop: 08/22/17 09:29 Last Admin: 08/20/17 23:57 Dose: 100 mls/hr Magnesium Sulfate 2 gm/ Premix 50 mls @ 25 mls/hr IV ONETIME ONE Stop: 08/21/17 12:29 Last Admin: 08/21/17 10:45 Dose: 25 mls/hr Magnesium Sulfate 2 gm/ Premix 50 mls @ 25 mls/hr IV ONETIME ONE Stop: 08/22/17 10:29 Last Admin: 08/22/17 09:32 Dose: 25 mls/hr Levofloxacin/Dextrose 500 mg/ (Premix) 100 mls @ 100 mls/hr IV ONETIME ONE Stop: 08/22/17 18:01 Last Admin: 08/22/17 17:30 Dose: 100 mls/hr Influenza Virus Vaccine (Pharmacy To Dose - Influenza Vaccine) 1 each IM ONETIME ONE Stop: 08/20/17 19:59 Influenza Virus Vaccine (Flulaval Quad [id number]) 60 mcg IM .ONCE ONE Stop: 08/20/17 20:16 Insulin Aspart (Novolog) 0 unit SUBCUT QIDACANDBED [facility] PRN Reason: Protocol Last Admin: 08/21/17 07:47 Dose: Not Given Iopamidol (Isovue-300 (61%)) 125 ml IVPUSH ONETIME ONE Stop: 08/22/17 13:58 Last Admin: 08/22/17 15:07 Dose: 125 ml Magnesium Oxide (Magnesium Oxide) 800 mg PO ONETIME ONE Stop: 08/21/17 08:31 Last Admin: 08/21/17 10:03 Dose: Not Given Ondansetron HCl (Zofran) 4 mg IVPUSH ONETIME ONE Stop: 08/20/17 16:10 Last Admin: 08/20/17 16:35 Dose: 4 mg Pantoprazole Sodium (Protonix Iv) 40 mg IVPUSH ONETIME ONE Stop: 08/20/17 15:55 Last Admin: 08/20/17 16:03 Dose: 40 mg Pantoprazole Sodium (Protonix Iv) 40 mg IV Q12H [facility] Stop: 08/22/17 09:01 Last Admin: 08/22/17 08:12 Dose: 40 mg Potassium Chloride (Klor-Con M20) 40 meq PO Q4H [facility] Stop: 08/22/17 13:01 Last Admin: 08/22/17 09:27 Dose: Not Given Sodium Chloride (Saline Flush) 10 ml FLUSH ONETIME ONE Stop: 08/22/17 13:58 Last Admin: 08/22/17 15:32 Dose: Not Given - Exam General: Alert, Oriented, Cooperative, No Acute Distress HEENT: Pupils Equal, Pupils Reactive, EOMI, Mucous Membr. Moist/[place] Neck: Supple, Trachea Midline, No JVD Lungs: Clear to Auscultation, Normal Respiratory Effort Cardiovascular: Regular Rate, Regular Rhythm GI/Abdominal Exam: Normal Bowel Sounds, Soft, Non-Tender, No Organomegaly, No Distention, No Abnormal Bruit, No Mass. No: Guarding, Rigid, Rebound (Female) Exam: Deferred Back Exam: Normal Inspection, Decreased Range of Motion Extremities: Normal Inspection, Normal Range of Motion, Non-Tender, No Pedal Edema, Normal Capillary Refill Peripheral Pulses: 2+: Dorsalis Pedis (L), Dorsalis Pedis (R) Skin: Warm, Dry, Intact Neurological: No New Focal Deficit Psy/Mental Status: Alert, Normal Affect, Normal Mood - Problem List Review Problem List Initiated/Reviewed/Updated: Yes - My Orders Last 24 Hours: My Active Orders 08/22/17 09:39 Oxymetazoline [Afrin Original 0.05% Nasal [place]] 0 ml JOE Q12HR PRN 08/22/17 10:58 Admission Status [Patient Status] [ADT] Routine 08/22/17 11:28 Notify Provider Consults [RC] ASDIRECTED Consult to Physician [CONS] Routine 08/22/17 18:00 metroNIDAZOLE/Normal Saline [Flagyl 500 MG in NS 100 ML] 500 mg Premix Bag 1 bag IV Q8H 08/22/17 21:00 Saccharomyces Boulardii [Florastor] 250 mg PO BID 08/23/17 05:57 BASIC METABOLIC PANEL,BMP [CHEM] AM CBC WITH AUTO DIFF [HEME] AM MAGNESIUM [CHEM] AM 08/23/17 17:00 Levofloxacin/Dextrose 5%-Water [Levaquin in D5W 500 MG/100 ML] 500 mg Premix Bag 1 bag IV Q24H 08/24/17 05:11 BASIC METABOLIC PANEL,BMP [CHEM] AM CBC WITH AUTO DIFF [HEME] AM MAGNESIUM [CHEM] AM 08/25/17 05:11 BASIC METABOLIC PANEL,BMP [CHEM] AM MAGNESIUM [CHEM] AM - Plan Plan:: I/P: Acute: Colitis -Inflammatory vs Infectious -Continue IV Levaquin/Flagyl -Probiotic supplement -Endoscopy outpatient in 4-6 weeks after discharge GI Bleed, Stable Hgb at 10.6 -Diverticulosis vs Inflammatory -Cannot r/o Malignancy; she has not had screening EGD -No FM hx/o GI CA -Multiple episodes of bloody and watery alternating diarrhea in ED and prior to arrival -Lower abdominal pain -No nausea/vomiting, afebrile -PT 42.2, INR 3.57, APTT 42 - not on any blood thinners -Hgb 14.7-->13.5--> 10.9--> 10.2 (Stable) -S/p 2L fluid bolus in ED -Type and screen -Fecal lactoferrin positive (inflammatory) -Continue IVF/PPIs and Supportive Care -GS consulted with Dr. Flanagan Hypomagnesemia, Hypokalemia, and Hypocalcemia -2/2 GI Loss and No Intake -Replete and Monitor Permissive Hyperglycemia with DM2 -She is currently on D5W/NS for nutritional sustenance -Hold diabetic meds, she is still npo -Accu-check with ISS QID AC and HS Resolved: Leukocytosis -Stress vs Inflammatory (CRP is normal) -? Foodborne infection vs other cause -Reportedly ate potato salad prior to events -WBC 22.85 -->13.62--> 10.3 -CRP 0.8 (normal) -Levaquin given in ED; antibiotic is not indicated -Stool culture obtained in ED - pending Dehydration -2/2 Intravascular Volume Depletion -Elevated Anion gap (18.0), Creatinine (1.6), Hct (45.8), hypotensive (87/58) , lightheaded and dizzy in ED -Multiple episodes of diarrhea -Very dry mucous membranes -2 L NS given in ED -Electrolytes look good -IV fluids as ordered -Monitor S/p Acute Kidney Injury, Improving -2/2 above from volume depletion -BUN 29 -Creatinine 1.6 -eGFR 33 -Continue hydration S/p AG-MA -2/2 GI Bleed and MARU -She is currently hydrating -Likely to get better as her GI bleed resolves S/p Abdominal Pain -Likely 2/2 below -Abn/Pelvis CT scan orders -PRN pain medications -Dr. Flanagan consulted Chronic: Type II DM - sliding scale insulin and glucose checks as ordered HLD HTN Arthritis s/p LAP BAND surgery Plan: She remains clinically and hemodynamically stable Continue current treatment D/c Telemetry and Saline lock Advance diet to full liquid low residue Routine AM labs Dr. Flanagan consulted Resume Home Meds except ASA Other orders as indicated above DVT/PE prophylaxis: SCDs CM for discharge planning Additional orders as above Code Status: FULL CODE. Her PCP is Dr. Stallings at [facility] here in [place]. LOS anticipate > 96hrs due to slow response to treatment.
[2017-08-23] MEDS: Saccharomyces Boulardii (Probiotic) 250 MG Cap PO SCH ×2 (09:28→21:27)
[2017-08-23] MEDS: amLODIPine 5 MG Tab PO SCH (09:29)
[2017-08-23] MEDS: Hydrochlorothiazide 25 MG Tab PO SCH (09:29)
[2017-08-23] MEDS: Lisinopril 20 MG Tab PO SCH (09:30)
[2017-08-23] MEDS ORDERED: Magnesium Sulfate/Water 2 GM in Premix Bag 1 BAG IV ONE (10:15)
[2017-08-23] MEDS: Potassium Chloride 20 MEQ Tab.ER PO SCH ×2 (10:34→15:02)
--- NOTE | 2017-08-23 10:44 | PCM.CONSN ---
- General Info Date of Service: 08/23/17 Functional Status: Reports: Pain Controlled - Review of Systems Gastrointestinal: Reports: No Symptoms - Patient Data Vitals - Most Recent: Last Vital Signs Temp 99.5 F 08/23/17 09:35 Pulse 76 08/23/17 09:35 Resp 16 08/23/17 09:35 BP 142/78 H 08/23/17 09:35 Pulse Ox 96 08/23/17 09:35 Weight - Most Recent: 98.52 kg I&O - Last 24 Hours: Intake & Output 08/22/17 08/23/17 08/23/17 23:59 07:59 15:59 Intake Total 385 1161 Output Total 1200 Balance -815 1161 Lab Results Last 24 Hours: Laboratory Results - last 24 hr 08/22/17 08/22/17 08/22/17 Range/Units 11:05 17:25 21:02 WBC (3.98-10.04) K/mm3 RBC (3.98-5.22) M/mm3 Hgb (11.2-15.7) gm/L Hct (34.1-44.9) % MCV (79.4-94.8) fl MCH (25.6-32.2) pg MCHC (32.2-35.5) g/dl RDW Std Deviation (36.4-46.3) fL Plt Count (182-369) K/mm3 MPV (9.4-12.3) fl Neut % (Auto) (34.0-71.1) % Lymph % (Auto) (19.3-51.7) % [place] % (Auto) (4.7-12.5) % Eos % (Auto) (0.7-5.8) Baso % (Auto) (0.1-1.2) % Neut # (Auto) (1.56-6.13) K/mm3 Lymph # (Auto) (1.18-3.74) K/mm3 [place] # (Auto) (0.24-0.36) K/mm3 Eos # (Auto) (0.04-0.36) K/mm3 Baso # (Auto) (0.01-0.08) K/mm3 Sodium (136-145) mEq/L Potassium (3.5-5.1) mEq/L Chloride (98-107) mEq/L Carbon Dioxide (21-32) mEq/L Anion Gap (5-15) BUN (7-18) mg/dL Creatinine (0.55-1.02) mg/dL Est Cr Clr Drug Dosing mL/min Estimated GFR (MDRD) (>60) mL/min BUN/Creatinine Ratio (14-18) Glucose (74-106) mg/dL POC Glucose 241 H 218 H 233 H (70-105) mg/dL Calcium (8.5-10.1) mg/dL Magnesium (1.8-2.4) mg/dl 08/23/17 08/23/17 08/23/17 Range/Units 05:57 05:57 06:03 WBC 6.51 (3.98-10.04) K/mm3 RBC 3.90 L (3.98-5.22) M/mm3 Hgb 10.6 L (11.2-15.7) gm/L Hct 33.2 L (34.1-44.9) % MCV 85.1 (79.4-94.8) fl MCH 27.2 (25.6-32.2) pg MCHC 31.9 L (32.2-35.5) g/dl RDW Std Deviation 43.1 (36.4-46.3) fL Plt Count 154 L (182-369) K/mm3 MPV 9.7 (9.4-12.3) fl Neut % (Auto) 69.0 (34.0-71.1) % Lymph % (Auto) 19.4 (19.3-51.7) % [place] % (Auto) 6.5 (4.7-12.5) % Eos % (Auto) 3.8 (0.7-5.8) Baso % (Auto) 0.5 (0.1-1.2) % Neut # (Auto) 4.50 (1.56-6.13) K/mm3 Lymph # (Auto) 1.26 (1.18-3.74) K/mm3 [place] # (Auto) 0.42 H (0.24-0.36) K/mm3 Eos # (Auto) 0.25 (0.04-0.36) K/mm3 Baso # (Auto) 0.03 (0.01-0.08) K/mm3 Sodium 139 (136-145) mEq/L Potassium 3.4 L (3.5-5.1) mEq/L Chloride 107 (98-107) mEq/L Carbon Dioxide 24 (21-32) mEq/L Anion Gap 11.4 (5-15) BUN 4 L (7-18) mg/dL Creatinine 0.6 (0.55-1.02) mg/dL Est Cr Clr Drug Dosing 91.96 mL/min Estimated GFR (MDRD) > 60 (>60) mL/min BUN/Creatinine Ratio 6.7 L (14-18) Glucose 196 H (74-106) mg/dL POC Glucose 204 H (70-105) mg/dL Calcium 8.4 L (8.5-10.1) mg/dL Magnesium 1.5 L (1.8-2.4) mg/dl Sigifredo Results Last 24 Hours: Microbiology 08/20/17 20:15 Stool Lactoferrin - Final Stool / Feces Med Orders - Current: Current Medications Acetaminophen (Tylenol) 650 mg PO Q4H PRN PRN Reason: Pain (Mild 1-3)/fever Hydrocodone Bitart/Acetaminophen ([place] 325-5 Mg) 1 tab PO Q4H PRN PRN Reason: Pain (moderate 4-6) Albuterol/Ipratropium (Duoneb 3.0-0.5 Mg/3 Ml) 3 ml NEB Q4H PRN PRN Reason: Shortness Of Breath/wheezing Amlodipine Besylate (Norvasc) 5 mg PO DAILY [facility] Last Admin: 08/23/17 09:29 Dose: 5 mg Dextrose/Water (Dextrose 50% In Water) 50 ml IVPUSH ASDIRECTED PRN PRN Reason: Hypoglycemia Hydralazine HCl (Apresoline) 20 mg IVPUSH Q4H PRN PRN Reason: Hypertension Last Admin: 08/22/17 15:39 Dose: 20 mg Hydrochlorothiazide (Hydrochlorothiazide) 12.5 mg PO DAILY [facility] Last Admin: 08/23/17 09:29 Dose: 12.5 mg Hydromorphone HCl (Dilaudid) 0.25 mg IVPUSH Q2H PRN PRN Reason: Pain (severe 7-10) Last Admin: 08/20/17 21:08 Dose: 0.25 mg Promethazine HCl 12.5 mg/ (Sodium Chloride) 50.5 mls @ 100 mls/hr IV Q6H PRN PRN Reason: Nausea/Vomiting Dextrose/Sodium Chloride (Dextrose 5%-Normal Saline) 1,000 mls @ 100 mls/hr IV ASDIRECTED [facility] Last Admin: 08/22/17 15:33 Dose: 100 mls/hr Levofloxacin/Dextrose 500 mg/ (Premix) 100 mls @ 100 mls/hr IV Q24H [facility] Metronidazole 500 mg/ Premix 100 mls @ 100 mls/hr IV Q8H [facility] Last Admin: 08/23/17 09:31 Dose: 100 mls/hr Magnesium Sulfate 2 gm/ Premix 50 mls @ 25 mls/hr IV ONETIME ONE Stop: 08/23/17 12:14 Last Admin: 08/23/17 10:34 Dose: 25 mls/hr Insulin Aspart (Novolog) 0 unit SUBCUT QIDACANDBED [facility] PRN Reason: Protocol Last Admin: 08/23/17 06:04 Dose: 2 unit Lisinopril (Prinivil) 40 mg PO DAILY [facility] Last Admin: 08/23/17 09:30 Dose: 40 mg Magnesium Sulfate (Pharmacy To Dose - Magnesium Replacement) 1 dose .XX ASDIRECTED [facility] Metoprolol Tartrate (Lopressor) 5 mg IVPUSH Q4H PRN PRN Reason: Tachycardia Ondansetron HCl (Zofran) 4 mg IV Q4H PRN PRN Reason: Nausea/Vomiting Oxymetazoline HCl (Afrin Original 0.05% Nasal [place]) 0 ml JOE Q12HR PRN PRN Reason: Congestion Last Admin: 08/22/17 10:01 Dose: 2 spray Potassium Chloride (Pharmacy To Dose - Potassium Replacement) 1 dose .XX ASDIRECTED [facility] Potassium Chloride (Klor-Con M20) 40 meq PO Q4H [facility] Stop: 08/23/17 15:01 Last Admin: 08/23/17 10:34 Dose: 40 meq Saccharomyces Boulardii (Florastor) 250 mg PO BID [facility] Last Admin: 08/23/17 09:28 Dose: 250 mg Sodium Chloride (Saline Flush) 10 ml FLUSH ASDIRECTED PRN PRN Reason: Keep Vein Open Last Admin: 08/22/17 15:07 Dose: 10 ml Temazepam (Restoril) 15 mg PO BEDTIME PRN PRN Reason: Sleep Last Admin: 08/22/17 22:01 Dose: 15 mg Discontinued Medications Diatrizoate Meglum/Diatrizoate Sod (Gastrografin 37%) 90 ml PO ONETIME ONE Stop: 08/22/17 13:58 Last Admin: 08/22/17 15:07 Dose: 90 ml Famotidine (Pepcid) 20 mg IVPUSH ONETIME ONE Stop: 08/20/17 15:55 Last Admin: 08/20/17 16:05 Dose: 20 mg Hydromorphone HCl (Dilaudid) 0.25 mg IVPUSH ONETIME ONE Stop: 08/20/17 16:10 Last Admin: 08/20/17 16:37 Dose: 0.25 mg Hydromorphone HCl (Dilaudid) 0.25 mg IVPUSH ONETIME ONE Stop: 08/20/17 17:35 Last Admin: 08/20/17 17:50 Dose: 0.25 mg Sodium Chloride (Normal Saline) 1,000 mls @ 999 mls/hr IV ONETIME [facility] Last Admin: 08/20/17 15:59 Dose: 999 mls/hr Sodium Chloride (Normal Saline) Confirm Administered Dose 1,000 mls @ as directed .ROUTE .STK-MED ONE Stop: 08/20/17 15:59 Last Admin: 08/20/17 16:00 Dose: Not Given Sodium Chloride (Normal Saline) 1,000 mls @ 999 mls/hr IV ONETIME ONE Stop: 08/20/17 17:08 Last Admin: 08/20/17 16:09 Dose: 999 mls/hr Sodium Chloride (Normal Saline) 1,000 mls @ 999 mls/hr IV ONETIME [facility] Last Admin: 08/20/17 17:45 Dose: 999 mls/hr Levofloxacin/Dextrose 500 mg/ (Premix) 100 mls @ 100 mls/hr IV ONETIME ONE Stop: 08/20/17 18:34 Last Admin: 08/20/17 17:55 Dose: 100 mls/hr Sodium Chloride (Normal Saline) 1,000 mls @ 100 mls/hr IV ASDIRECTED [facility] Stop: 08/22/17 09:29 Last Admin: 08/20/17 23:57 Dose: 100 mls/hr Magnesium Sulfate 2 gm/ Premix 50 mls @ 25 mls/hr IV ONETIME ONE Stop: 08/21/17 12:29 Last Admin: 08/21/17 10:45 Dose: 25 mls/hr Magnesium Sulfate 2 gm/ Premix 50 mls @ 25 mls/hr IV ONETIME ONE Stop: 08/22/17 10:29 Last Admin: 08/22/17 09:32 Dose: 25 mls/hr Levofloxacin/Dextrose 500 mg/ (Premix) 100 mls @ 100 mls/hr IV ONETIME ONE Stop: 08/22/17 18:01 Last Admin: 08/22/17 17:30 Dose: 100 mls/hr Influenza Virus Vaccine (Pharmacy To Dose - Influenza Vaccine) 1 each IM ONETIME ONE Stop: 08/20/17 19:59 Influenza Virus Vaccine (Flulaval Quad [id number]) 60 mcg IM .ONCE ONE Stop: 08/20/17 20:16 Insulin Aspart (Novolog) 0 unit SUBCUT QIDACANDBED [facility] PRN Reason: Protocol Last Admin: 08/21/17 07:47 Dose: Not Given Iopamidol (Isovue-300 (61%)) 125 ml IVPUSH ONETIME ONE Stop: 08/22/17 13:58 Last Admin: 08/22/17 15:07 Dose: 125 ml Magnesium Oxide (Magnesium Oxide) 800 mg PO ONETIME ONE Stop: 08/21/17 08:31 Last Admin: 08/21/17 10:03 Dose: Not Given Ondansetron HCl (Zofran) 4 mg IVPUSH ONETIME ONE Stop: 08/20/17 16:10 Last Admin: 08/20/17 16:35 Dose: 4 mg Pantoprazole Sodium (Protonix Iv) 40 mg IVPUSH ONETIME ONE Stop: 08/20/17 15:55 Last Admin: 08/20/17 16:03 Dose: 40 mg Pantoprazole Sodium (Protonix Iv) 40 mg IV Q12H [facility] Stop: 08/22/17 09:01 Last Admin: 08/22/17 08:12 Dose: 40 mg Potassium Chloride (Klor-Con M20) 40 meq PO Q4H [facility] Stop: 08/22/17 13:01 Last Admin: 08/22/17 09:27 Dose: Not Given Sodium Chloride (Saline Flush) 10 ml FLUSH ONETIME ONE Stop: 08/22/17 13:58 Last Admin: 08/22/17 15:32 Dose: Not Given - Exam GI/Abdominal Exam: Normal Bowel Sounds, Soft, Non-Tender, No Organomegaly, No Distention, No Abnormal Bruit, No Mass, Pelvis Stable Consult PN Assessment/Plan Problem List Initiated/Reviewed/Updated: Yes My Orders Last 24 Hours: My Active Orders 08/22/17 17:00 C DIFFICILE BY PCR W/NAP1 [MOLEC] Routine CULTURE STOOL + SHIGATOX [RM] Routine business solutions consultant note pt VS stable pt on flagyl and levoquin sx abdominal pain has resolved no more rectal bleeding signs no abdominal tenderness CT scan indicates colitis in the transverse and descending and sigmoind colon lab pending for c diff ass likely colitis due to C. diff improving on present treatment will have pt follow up out patient for further evaluation and future colonoscopy MICHELLE
[2017-08-23] MEDS: hydrALAZINE 20 MG/ML SDV IVPUSH PRN ×2 (16:32→21:36)
[2017-08-23] MEDS: Levofloxacin/Dextrose 5%-Water 500 MG in Premix Bag 1 BAG IV SCH (16:37)
[2017-08-23] MEDS ORDERED: Furosemide 20 MG/2 ML VIAL IVPUSH ONE (18:28)
[2017-08-24] MEDS: metroNIDAZOLE/Normal Saline 500 MG in Premix Bag 1 BAG IV SCH ×3 (02:52→17:44)
--- NOTE | 2017-08-24 06:33 | PCM.PN ---
- General Info Date of Service: 08/24/17 Admission Dx/Problem (Free Text): GI Bleeding Subjective Update: Follow up Functional Status: Reports: Pain Controlled, Tolerating Diet, Ambulating, Urinating. Denies: New Symptoms - Patient Data Vitals - Most Recent: Last Vital Signs Temp 36.6 C 08/24/17 02:53 Pulse 84 08/24/17 02:53 Resp 14 08/24/17 02:53 BP 137/81 08/24/17 02:53 Pulse Ox 94 L 08/24/17 02:53 Weight - Most Recent: 99.291 kg I&O - Last 24 Hours: Intake & Output 08/23/17 08/23/17 08/24/17 14:59 22:59 06:59 Intake Total 85 1403 650 Balance 85 1403 650 Lab Results Last 24 Hours: Laboratory Results - last 24 hr 08/22/17 08/23/17 08/23/17 Range/Units 17:00 05:57 05:57 WBC 6.51 (3.98-10.04) K/mm3 RBC 3.90 L (3.98-5.22) M/mm3 Hgb 10.6 L (11.2-15.7) gm/L Hct 33.2 L (34.1-44.9) % MCV 85.1 (79.4-94.8) fl MCH 27.2 (25.6-32.2) pg MCHC 31.9 L (32.2-35.5) g/dl RDW Std Deviation 43.1 (36.4-46.3) fL Plt Count 154 L (182-369) K/mm3 MPV 9.7 (9.4-12.3) fl Neut % (Auto) 69.0 (34.0-71.1) % Lymph % (Auto) 19.4 (19.3-51.7) % [place] % (Auto) 6.5 (4.7-12.5) % Eos % (Auto) 3.8 (0.7-5.8) Baso % (Auto) 0.5 (0.1-1.2) % Neut # (Auto) 4.50 (1.56-6.13) K/mm3 Lymph # (Auto) 1.26 (1.18-3.74) K/mm3 [place] # (Auto) 0.42 H (0.24-0.36) K/mm3 Eos # (Auto) 0.25 (0.04-0.36) K/mm3 Baso # (Auto) 0.03 (0.01-0.08) K/mm3 Sodium 139 (136-145) mEq/L Potassium 3.4 L (3.5-5.1) mEq/L Chloride 107 (98-107) mEq/L Carbon Dioxide 24 (21-32) mEq/L Anion Gap 11.4 (5-15) BUN 4 L (7-18) mg/dL Creatinine 0.6 (0.55-1.02) mg/dL Est Cr Clr Drug Dosing 91.96 mL/min Estimated GFR (MDRD) > 60 (>60) mL/min BUN/Creatinine Ratio 6.7 L (14-18) Glucose 196 H (74-106) mg/dL POC Glucose (70-105) mg/dL Calcium 8.4 L (8.5-10.1) mg/dL Magnesium 1.5 L (1.8-2.4) mg/dl C.difficile [id number] Presumptive negative C. difficile Tox (PCR) Negative 08/23/17 08/23/17 08/23/17 Range/Units 12:08 17:18 21:26 WBC (3.98-10.04) K/mm3 RBC (3.98-5.22) M/mm3 Hgb (11.2-15.7) gm/L Hct (34.1-44.9) % MCV (79.4-94.8) fl MCH (25.6-32.2) pg MCHC (32.2-35.5) g/dl RDW Std Deviation (36.4-46.3) fL Plt Count (182-369) K/mm3 MPV (9.4-12.3) fl Neut % (Auto) (34.0-71.1) % Lymph % (Auto) (19.3-51.7) % [place] % (Auto) (4.7-12.5) % Eos % (Auto) (0.7-5.8) Baso % (Auto) (0.1-1.2) % Neut # (Auto) (1.56-6.13) K/mm3 Lymph # (Auto) (1.18-3.74) K/mm3 [place] # (Auto) (0.24-0.36) K/mm3 Eos # (Auto) (0.04-0.36) K/mm3 Baso # (Auto) (0.01-0.08) K/mm3 Sodium (136-145) mEq/L Potassium (3.5-5.1) mEq/L Chloride (98-107) mEq/L Carbon Dioxide (21-32) mEq/L Anion Gap (5-15) BUN (7-18) mg/dL Creatinine (0.55-1.02) mg/dL Est Cr Clr Drug Dosing mL/min Estimated GFR (MDRD) (>60) mL/min BUN/Creatinine Ratio (14-18) Glucose (74-106) mg/dL POC Glucose 198 H 192 H 240 H (70-105) mg/dL Calcium (8.5-10.1) mg/dL Magnesium (1.8-2.4) mg/dl C.difficile [id number] C. difficile Tox (PCR) Med Orders - Current: Current Medications Acetaminophen (Tylenol) 650 mg PO Q4H PRN PRN Reason: Pain (Mild 1-3)/fever Hydrocodone Bitart/Acetaminophen ([place] 325-5 Mg) 1 tab PO Q4H PRN PRN Reason: Pain (moderate 4-6) Albuterol/Ipratropium (Duoneb 3.0-0.5 Mg/3 Ml) 3 ml NEB Q4H PRN PRN Reason: Shortness Of Breath/wheezing Amlodipine Besylate (Norvasc) 5 mg PO DAILY [facility] Last Admin: 08/23/17 09:29 Dose: 5 mg Dextrose/Water (Dextrose 50% In Water) 50 ml IVPUSH ASDIRECTED PRN PRN Reason: Hypoglycemia Fish Oil (Fish Oil) 1 gm PO DAILY [facility] Glipizide (Glucotrol) 5 mg PO DAILY [facility] Hydralazine HCl (Apresoline) 20 mg IVPUSH Q4H PRN PRN Reason: Hypertension Last Admin: 08/23/17 21:36 Dose: 20 mg Hydrochlorothiazide (Hydrochlorothiazide) 12.5 mg PO DAILY EN Last Admin: 08/23/17 09:29 Dose: 12.5 mg Hydromorphone HCl (Dilaudid) 0.25 mg IVPUSH Q2H PRN PRN Reason: Pain (severe 7-10) Last Admin: 08/20/17 21:08 Dose: 0.25 mg Promethazine HCl 12.5 mg/ (Sodium Chloride) 50.5 mls @ 100 mls/hr IV Q6H PRN PRN Reason: Nausea/Vomiting Dextrose/Sodium Chloride (Dextrose 5%-Normal Saline) 1,000 mls @ 100 mls/hr IV ASDIRECTED [facility] Last Admin: 08/22/17 15:33 Dose: 100 mls/hr Levofloxacin/Dextrose 500 mg/ (Premix) 100 mls @ 100 mls/hr IV Q24H [facility] Last Admin: 08/23/17 16:37 Dose: 100 mls/hr Metronidazole 500 mg/ Premix 100 mls @ 100 mls/hr IV Q8H [facility] Last Admin: 08/24/17 02:52 Dose: 100 mls/hr Insulin Aspart (Novolog) 0 unit SUBCUT QIDACANDBED [facility] PRN Reason: Protocol Last Admin: 08/23/17 21:27 Dose: 2 unit Lisinopril (Prinivil) 40 mg PO DAILY [facility] Last Admin: 08/23/17 09:30 Dose: 40 mg Magnesium Sulfate (Pharmacy To Dose - Magnesium Replacement) 1 dose .XX ASDIRECTED [facility] Metformin HCl (Glucophage) 1,000 mg PO DAILY [facility] Metoprolol Tartrate (Lopressor) 5 mg IVPUSH Q4H PRN PRN Reason: Tachycardia Multivitamins (Thera) 1 each PO DAILY [facility] Ondansetron HCl (Zofran) 4 mg IV Q4H PRN PRN Reason: Nausea/Vomiting Oxybutynin Chloride (Oxybutynin Er) 10 mg PO DAILY [facility] Oxymetazoline HCl (Afrin Original 0.05% Nasal [place]) 0 ml JOE Q12HR PRN PRN Reason: Congestion Last Admin: 08/22/17 10:01 Dose: 2 spray Potassium Chloride (Pharmacy To Dose - Potassium Replacement) 1 dose .XX ASDIRECTED [facility] Saccharomyces Boulardii (Florastor) 250 mg PO BID [facility] Last Admin: 08/23/17 21:27 Dose: 250 mg Simvastatin (Zocor) 20 mg PO BEDTIME [facility] Sodium Chloride (Saline Flush) 10 ml FLUSH ASDIRECTED PRN PRN Reason: Keep Vein Open Last Admin: 08/22/17 15:07 Dose: 10 ml Temazepam (Restoril) 15 mg PO BEDTIME PRN PRN Reason: Sleep Last Admin: 08/22/17 22:01 Dose: 15 mg Vitamin B Complex/Vitamin C (Super B With Vitamin C) 1 cap PO DAILY EN Discontinued Medications Diatrizoate Meglum/Diatrizoate Sod (Gastrografin 37%) 90 ml PO ONETIME ONE Stop: 08/22/17 13:58 Last Admin: 08/22/17 15:07 Dose: 90 ml Famotidine (Pepcid) 20 mg IVPUSH ONETIME ONE Stop: 08/20/17 15:55 Last Admin: 08/20/17 16:05 Dose: 20 mg Furosemide (Lasix) 20 mg IVPUSH NOW ONE Stop: 08/23/17 18:29 Last Admin: 08/23/17 18:44 Dose: 20 mg Hydromorphone HCl (Dilaudid) 0.25 mg IVPUSH ONETIME ONE Stop: 08/20/17 16:10 Last Admin: 08/20/17 16:37 Dose: 0.25 mg Hydromorphone HCl (Dilaudid) 0.25 mg IVPUSH ONETIME ONE Stop: 08/20/17 17:35 Last Admin: 08/20/17 17:50 Dose: 0.25 mg Sodium Chloride (Normal Saline) 1,000 mls @ 999 mls/hr IV ONETIME EN Last Admin: 08/20/17 15:59 Dose: 999 mls/hr Sodium Chloride (Normal Saline) Confirm Administered Dose 1,000 mls @ as directed .ROUTE .STK-MED ONE Stop: 08/20/17 15:59 Last Admin: 08/20/17 16:00 Dose: Not Given Sodium Chloride (Normal Saline) 1,000 mls @ 999 mls/hr IV ONETIME ONE Stop: 08/20/17 17:08 Last Admin: 08/20/17 16:09 Dose: 999 mls/hr Sodium Chloride (Normal Saline) 1,000 mls @ 999 mls/hr IV ONETIME EN Last Admin: 08/20/17 17:45 Dose: 999 mls/hr Levofloxacin/Dextrose 500 mg/ (Premix) 100 mls @ 100 mls/hr IV ONETIME ONE Stop: 08/20/17 18:34 Last Admin: 08/20/17 17:55 Dose: 100 mls/hr Sodium Chloride (Normal Saline) 1,000 mls @ 100 mls/hr IV ASDIRECTED [facility] Stop: 08/22/17 09:29 Last Admin: 08/20/17 23:57 Dose: 100 mls/hr Magnesium Sulfate 2 gm/ Premix 50 mls @ 25 mls/hr IV ONETIME ONE Stop: 08/21/17 12:29 Last Admin: 08/21/17 10:45 Dose: 25 mls/hr Magnesium Sulfate 2 gm/ Premix 50 mls @ 25 mls/hr IV ONETIME ONE Stop: 08/22/17 10:29 Last Admin: 08/22/17 09:32 Dose: 25 mls/hr Levofloxacin/Dextrose 500 mg/ (Premix) 100 mls @ 100 mls/hr IV ONETIME ONE Stop: 08/22/17 18:01 Last Admin: 08/22/17 17:30 Dose: 100 mls/hr Magnesium Sulfate 2 gm/ Premix 50 mls @ 25 mls/hr IV ONETIME ONE Stop: 08/23/17 12:14 Last Admin: 08/23/17 10:34 Dose: 25 mls/hr Influenza Virus Vaccine (Pharmacy To Dose - Influenza Vaccine) 1 each IM ONETIME ONE Stop: 08/20/17 19:59 Influenza Virus Vaccine (Flulaval Quad [id number]) 60 mcg IM .ONCE ONE Stop: 08/20/17 20:16 Insulin Aspart (Novolog) 0 unit SUBCUT QIDACANDBED [facility] PRN Reason: Protocol Last Admin: 08/21/17 07:47 Dose: Not Given Iopamidol (Isovue-300 (61%)) 125 ml IVPUSH ONETIME ONE Stop: 08/22/17 13:58 Last Admin: 08/22/17 15:07 Dose: 125 ml Magnesium Oxide (Magnesium Oxide) 800 mg PO ONETIME ONE Stop: 08/21/17 08:31 Last Admin: 08/21/17 10:03 Dose: Not Given Non-Formulary Medication (Ubiquinol [Ubiquinol]) 100 mg PO DAILY [facility] Ondansetron HCl (Zofran) 4 mg IVPUSH ONETIME ONE Stop: 08/20/17 16:10 Last Admin: 08/20/17 16:35 Dose: 4 mg Pantoprazole Sodium (Protonix Iv) 40 mg IVPUSH ONETIME ONE Stop: 08/20/17 15:55 Last Admin: 08/20/17 16:03 Dose: 40 mg Pantoprazole Sodium (Protonix Iv) 40 mg IV Q12H [facility] Stop: 08/22/17 09:01 Last Admin: 08/22/17 08:12 Dose: 40 mg Potassium Chloride (Klor-Con M20) 40 meq PO Q4H EN Stop: 08/22/17 13:01 Last Admin: 08/22/17 09:27 Dose: Not Given Potassium Chloride (Klor-Con M20) 40 meq PO Q4H [facility] Stop: 08/23/17 15:01 Last Admin: 08/23/17 15:02 Dose: 40 meq Sodium Chloride (Saline Flush) 10 ml FLUSH ONETIME ONE Stop: 08/22/17 13:58 Last Admin: 08/22/17 15:32 Dose: Not Given - My Orders Last 24 Hours: My Active Orders 08/23/17 07:09 Patient Status [ADT] Routine 08/23/17 17:00 Levofloxacin/Dextrose 5%-Water [Levaquin in D5W 500 MG/100 ML] 500 mg Premix Bag 1 bag IV Q24H 08/23/17 Breakfast Full Liquid Diet [DIET] 08/24/17 06:06 BASIC METABOLIC PANEL,BMP [CHEM] AM CBC WITH AUTO DIFF [HEME] AM MAGNESIUM [CHEM] AM 08/24/17 09:00 Alogliptin Benzoate [Alogliptin] 12.5 mg PO DAILY Fish Oil/[place]-3 Fatty Acids [Fish Oil] 1 gm PO DAILY Multivitamins,Therapeutic [Thera] 1 each PO DAILY Oxybutynin [Oxybutynin ER] 10 mg PO DAILY Vitamin B Complex with C [Super B With Vitamin C] 1 cap PO DAILY glipiZIDE [Glucotrol] 5 mg PO DAILY metFORMIN [Glucophage] 1,000 mg PO DAILY 08/24/17 21:00 Simvastatin [Zocor] 20 mg PO BEDTIME 08/25/17 05:11 BASIC METABOLIC PANEL,BMP [CHEM] AM MAGNESIUM [CHEM] AM - Plan Plan:: I/P: Acute: Colitis -Inflammatory vs Infectious -Continue IV Levaquin/Flagyl -Probiotic supplement -Endoscopy outpatient in 4-6 weeks after discharge GI Bleed, Stable Hgb at 10.6 -Diverticulosis vs Inflammatory -Cannot r/o Malignancy; she has not had screening EGD -No FM hx/o GI CA -Multiple episodes of bloody and watery alternating diarrhea in ED and prior to arrival -Lower abdominal pain -No nausea/vomiting, afebrile -PT 42.2, INR 3.57, APTT 42 - not on any blood thinners -Hgb 14.7-->13.5--> 10.9--> 10.2 (Stable) -S/p 2L fluid bolus in ED -Type and screen -Fecal lactoferrin positive (inflammatory) -Continue IVF/PPIs and Supportive Care -GS consulted with Dr. Flanagan Hypomagnesemia, Hypokalemia, and Hypocalcemia -2/2 GI Loss and No Intake -Replete and Monitor Permissive Hyperglycemia with DM2 -She is currently on D5W/NS for nutritional sustenance -Hold diabetic meds, she is still npo -Accu-check with ISS QID AC and HS Resolved: Leukocytosis -Stress vs Inflammatory (CRP is normal) -? Foodborne infection vs other cause -Reportedly ate potato salad prior to events -WBC 22.85 -->13.62--> 10.3 -CRP 0.8 (normal) -Levaquin given in ED; antibiotic is not indicated -Stool culture obtained in ED - pending Dehydration -2/2 Intravascular Volume Depletion -Elevated Anion gap (18.0), Creatinine (1.6), Hct (45.8), hypotensive (87/58) , lightheaded and dizzy in ED -Multiple episodes of diarrhea -Very dry mucous membranes -2 L NS given in ED -Electrolytes look good -IV fluids as ordered -Monitor S/p Acute Kidney Injury, Improving -2/2 above from volume depletion -BUN 29 -Creatinine 1.6 -eGFR 33 -Continue hydration S/p AG-MA -2/2 GI Bleed and MARU -She is currently hydrating -Likely to get better as her GI bleed resolves S/p Abdominal Pain -Likely 2/2 below -Abn/Pelvis CT scan orders -PRN pain medications -Dr. Flanagan consulted Chronic: Type II DM - sliding scale insulin and glucose checks as ordered HLD HTN Arthritis s/p LAP BAND surgery Plan: She remains clinically and hemodynamically stable Continue current treatment D/c Telemetry and Saline lock Advance diet to full liquid low residue Routine AM labs Dr. Flanagan consulted Resume Home Meds except ASA Other orders as indicated above DVT/PE prophylaxis: SCDs CM for discharge planning Additional orders as above Code Status: FULL CODE. Her PCP is Dr. Stallings at [facility] here in [place]. LOS anticipate > 96hrs due to slow response to treatment.
[2017-08-24] MEDS ORDERED: UBIQUINOL 100 MG PO SCH (09:00)
[2017-08-24] MEDS: Saccharomyces Boulardii (Probiotic) 250 MG Cap PO SCH (09:00)
[2017-08-24] MEDS ORDERED: Alogliptin 12.5 MG TABLET PO SCH (09:00)
[2017-08-24] MEDS ORDERED: Fish Oil/Omega-3 Fatty Acids 1 Gm Cap PO SCH (09:00)
[2017-08-24] MEDS ORDERED: glipiZIDE 5 MG Tab PO SCH (09:00)
[2017-08-24] MEDS: Lisinopril 20 MG Tab PO SCH (09:00)
[2017-08-24] MEDS ORDERED: Vitamin B Complex With Vitamin C Cap PO SCH (09:00)
[2017-08-24] MEDS ORDERED: Oxybutynin 5 MG Tab.ER PO SCH (09:00)
[2017-08-24] MEDS ORDERED: Multivitamins,Therapeutic Tab PO SCH (09:00)
[2017-08-24] MEDS ORDERED: metFORMIN 500 MG Tab PO SCH (09:00)
[2017-08-24] MEDS: amLODIPine 5 MG Tab PO SCH (09:01)
[2017-08-24] MEDS: Hydrochlorothiazide 25 MG Tab PO SCH (09:01)
[2017-08-24] MEDS: Insulin Aspart 100 Units/ML 3 ML Pen SUBCUT SCH ×4 (09:02→18:00)
[2017-08-24] MEDS ORDERED: Magnesium Sulfate/Water 2 GM in Premix Bag 1 BAG IV ONE (10:30)
[2017-08-24] MEDS ORDERED: Magnesium Oxide 400 MG Tab PO SCH (15:00)
[2017-08-24] MEDS: Levofloxacin/Dextrose 5%-Water 500 MG in Premix Bag 1 BAG IV SCH (16:13)
--- NOTE | 2017-08-24 16:22 | PCM.DCSUM1 ---
Discharge Summary - Hospital Course Brief History: Blanquita Huynh is a 57 yo female who presented to our ED today (08/20/16) via ambulance with abdominal pain, dizziness, hypotension, hematochezia. She poorly felt fine on the morning of admission and had a normal lunch with potato salad which was store-bought 2-3 days prior. Approximately 2 hours later she began having abdominal pain and cramping followed by severe watery and bloody diarrhea. She has had some nausea but no vomiting, fever, or chills. She reported associated weakness, dizzy, lightheaded. Patient was admitted for evaluation of GI bleed. - Discharge Data Discharge Date: 08/24/17 Discharge Disposition: Home, Self-Care 01 Condition: Good - Discharge Diagnosis/Problem(s) (1) Hyperglycemia due to type 2 diabetes mellitus SNOMED Code(s): 713651696342756 ICD Code: E11.65 - TYPE 2 DIABETES MELLITUS WITH HYPERGLYCEMIA Status: Acute Qualifiers: Diabetes mellitus director long term care insulin use: unspecified longterm insulin use status Qualified Code(s): E11.65 - Type 2 diabetes mellitus with hyperglycemia (2) Hypomagnesemia SNOMED Code(s): 350174147 ICD Code: E83.42 - HYPOMAGNESEMIA Status: Resolved (3) Dehydration SNOMED Code(s): 11011190 ICD Code: E86.0 - DEHYDRATION Status: Resolved (4) MARU (acute kidney injury) SNOMED Code(s): 23522721 ICD Code: N17.9 - ACUTE KIDNEY FAILURE, UNSPECIFIED Status: Resolved (5) Abdominal pain SNOMED Code(s): 65067080 ICD Code: R10.9 - UNSPECIFIED ABDOMINAL PAIN Status: Resolved Qualifiers: Abdominal location: lower abdomen, unspecified Qualified Code(s): R10.30 - Lower abdominal pain, unspecified (6) High anion gap metabolic acidosis SNOMED Code(s): 06508804 ICD Code: E87.2 - ACIDOSIS Status: Resolved (7) Colitis SNOMED Code(s): 63284213 ICD Code: K52.9 - NONINFECTIVE GASTROENTERITIS AND COLITIS, UNSPECIFIED Status: Acute (8) GI bleeding SNOMED Code(s): 86741137 ICD Code: K92.2 - GASTROINTESTINAL HEMORRHAGE, UNSPECIFIED Status: Acute Priority: High Qualifiers: GI bleed type/associated pathology: unspecified gastrointestinal hemorrhage type Qualified Code(s): K92.2 - Gastrointestinal hemorrhage, unspecified - Patient Summary/Data Operative Procedure(s) Performed: None Complications: None Consults: Consultations 08/22/17 11:28 Consult to Physician [CONS] Routine Labs Pending at D/C: None Recommended Follow-up Testing/Procedures: Dr. Flanagan for outpatient endoscopy Planned Operative Procedure(s) after DC: Outpatient endoscopy Hospital Course: Patient was primarily admitted for abdominal pain associated with rectal bleed and was diagnosed with diffuse colitis. She carried no risk factors or past medical hx/o associated to gastrointestinal. However patient admitted to no screening colonoscopy in the past. Upon admission, she was provided supportive care with serial cbc to monitor her Hgb level. Dr. Flanagan was consulted but no additional management recommended after she was diagnosed with colitis on abdominal/pelvic CT scan. She did however, receive intravenous levaquin and flagyl for antibiotic coverage. Her stools and blood cultures revealed no significant abnormal findings. Her hospital course was fairly uncomplicated and the rest of her chronic medical illness remained stable during this admission. Patient was clinically stable on discharge and tolerated regular meal without any GI issues. She was released with additional course of oral levaquin and flagyl to complete a total of 14 day treatment. Patient was advised to avoid fatty/greasy meal for 1 week. She was further advised to follow up with Dr. Flanagan in 2 weeks and with her PCP in 3 weeks. The patient expressed understanding and in agreement with the plans as discussed above. All questions were answered. - Patient Instructions Diet: Usual Diet as Tolerated Fluid Restriction: 1500 mL Activity: As Tolerated Driving: Do Not Drive Showering/Bathing: May Shower Notify Provider of: Fever, Increased Pain, Nausea and/or Vomiting Other/Special Instructions: - Please take new medications as directed. - Avoid ASA/NSAIDs (Aspirin, Motrin, Advil, Ibuprofen or Naproxen) for 2 weeks. - Slowly incorporate greasy/fatty or dairy products after 1 week. - Recommend you follow up with Dr. Flanagan in 2 weeks for further eval. - Follow up with your doctor in 3 weeks. - Call or follow up with your doctor for any questions or concerns after discharge - Discharge Plan Prescriptions/Med Rec: Lactobac Cmb #3/Fos/Pantethine [Probiotic & Acidophilus] 1 each PO Q8H #39 capsule Levofloxacin [Levaquin] 500 mg PO DAILY #13 tablet metroNIDAZOLE [Flagyl] 500 mg PO Q8H #39 tab Home Medications: Home Meds Aspirin [Lo-Dose Aspirin EC] 81 mg PO DAILY 08/20/17 [History] Hydrochlorothiazide 12.5 mg PO DAILY 08/20/17 [History] Lisinopril [Zestril] 40 mg PO DAILY 08/20/17 [History] Multivitamin [Multiple Vitamins] 1 tab PO DAILY 08/20/17 [History] [place]-3S/DHA/Epa/Fish Oil [[place]-3 Fish Oil 1,000 mg Sfgl] 1,000 mg PO DAILY 05/28 [History] Oxybutynin Chloride [Ditropan Xl] 10 mg PO DAILY 08/20/17 [History] Protein Liquid Nutritional Sup 0 dose PO ASDIRECTED 08/20/17 [History] Ubiquinol 100 mg PO DAILY 08/20/17 [History] Vitamin B Complex [B Complex] 1 tab PO DAILY 08/20/17 [History] amLODIPine [Norvasc] 5 mg PO DAILY 08/20/17 [History] atorvaSTATin [Lipitor] 20 mg PO DAILY 08/20/17 [History] glyBURIDE [Glyburide] 5 mg PO DAILY 08/20/17 [History] sitaGLIPtin Phos/Metformin HCl [Janumet 50-1,000 MG] 50 - 1,000 mg PO DAILY 05/28 [History] Lactobac Cmb #3/Fos/Pantethine [Probiotic & Acidophilus] 1 each PO Q8H #39 capsule 08/24/17 [Rx] Levofloxacin [Levaquin] 500 mg PO DAILY #13 tablet 08/24/17 [Rx] metroNIDAZOLE [Flagyl] 500 mg PO Q8H #39 tab 08/24/17 [Rx] Patient Handouts: Gastrointestinal Bleeding, Colitis Referrals: Ria Wheeler MD [Primary Care Provider] - - Discharge Summary/Plan Comment DC Time >30 min.: Yes (45 mins) Discharge Summary/Plan Comment: Discharge to Home - General Info Date of Service: 08/24/17 Admission Dx/Problem (Free Text: Colitis Subjective Update: Follow Up Functional Status: Reports: Pain Controlled, Tolerating Diet, Ambulating, Urinating. Denies: New Symptoms - Review of Systems General: Denies: Fever, Weakness, Fatigue, Malaise, Chills HEENT: Reports: No Symptoms Pulmonary: Denies: Shortness of Breath Cardiovascular: Denies: Chest Pain Gastrointestinal: Reports: Flatus. Denies: Abdominal Pain, Decreased Appetite, Diarrhea, Difficulty Swallowing, Hematochezia, Melena, Nausea, Vomiting Genitourinary: Reports: No Symptoms Musculoskeletal: Reports: No Symptoms Skin: Denies: Cyanosis, Mottled, Pallor, Diaphoresis Neurological: Denies: Confusion, Difficulty Walking, Weakness, Gait Disturbance Psychiatric: Denies: Depression, Anxiety, Agitation, Hallucinations Systems Review Comment: No significant overnight or acute issues. She slept well. She is doing relatively well. Her Hgb has improved to 11.5. She is tolerating her current diet level. She feels pretty good and reports no new complaints. - Patient Data Vitals - Most Recent: Last Vital Signs Temp 36.1 C 08/24/17 15:00 Pulse 74 08/24/17 15:00 Resp 18 08/24/17 15:00 BP 120/79 08/24/17 15:00 Pulse Ox 97 08/24/17 15:00 Weight - Most Recent: 99.291 kg I&O - Last 24 hours: Intake & Output 08/24/17 08/24/17 08/24/17 06:59 14:59 22:59 Intake Total 650 280 Balance 650 280 Lab Results - Last 24 hrs: Laboratory Results - last 24 hr 08/23/17 08/23/17 08/24/17 Range/Units 17:18 21:26 06:06 WBC 6.32 (3.98-10.04) K/mm3 RBC 4.14 (3.98-5.22) M/mm3 Hgb 11.5 (11.2-15.7) gm/L Hct 34.9 (34.1-44.9) % MCV 84.3 (79.4-94.8) fl MCH 27.8 (25.6-32.2) pg MCHC 33.0 (32.2-35.5) g/dl RDW Std Deviation 43.0 (36.4-46.3) fL Plt Count 188 (182-369) K/mm3 MPV 9.7 (9.4-12.3) fl Neut % (Auto) 67.3 (34.0-71.1) % Lymph % (Auto) 20.1 (19.3-51.7) % [place] % (Auto) 6.5 (4.7-12.5) % Eos % (Auto) 4.3 (0.7-5.8) Baso % (Auto) 0.5 (0.1-1.2) % Neut # (Auto) 4.26 (1.56-6.13) K/mm3 Lymph # (Auto) 1.27 (1.18-3.74) K/mm3 [place] # (Auto) 0.41 H (0.24-0.36) K/mm3 Eos # (Auto) 0.27 (0.04-0.36) K/mm3 Baso # (Auto) 0.03 (0.01-0.08) K/mm3 Sodium (136-145) mEq/L Potassium (3.5-5.1) mEq/L Chloride (98-107) mEq/L Carbon Dioxide (21-32) mEq/L Anion Gap (5-15) BUN (7-18) mg/dL Creatinine (0.55-1.02) mg/dL Est Cr Clr Drug Dosing mL/min Estimated GFR (MDRD) (>60) mL/min BUN/Creatinine Ratio (14-18) Glucose (74-106) mg/dL POC Glucose 192 H 240 H (70-105) mg/dL Calcium (8.5-10.1) mg/dL Magnesium (1.8-2.4) mg/dl 08/24/17 08/24/17 08/24/17 Range/Units 06:06 06:47 11:42 WBC (3.98-10.04) K/mm3 RBC (3.98-5.22) M/mm3 Hgb (11.2-15.7) gm/L Hct (34.1-44.9) % MCV (79.4-94.8) fl MCH (25.6-32.2) pg MCHC (32.2-35.5) g/dl RDW Std Deviation (36.4-46.3) fL Plt Count (182-369) K/mm3 MPV (9.4-12.3) fl Neut % (Auto) (34.0-71.1) % Lymph % (Auto) (19.3-51.7) % [place] % (Auto) (4.7-12.5) % Eos % (Auto) (0.7-5.8) Baso % (Auto) (0.1-1.2) % Neut # (Auto) (1.56-6.13) K/mm3 Lymph # (Auto) (1.18-3.74) K/mm3 [place] # (Auto) (0.24-0.36) K/mm3 Eos # (Auto) (0.04-0.36) K/mm3 Baso # (Auto) (0.01-0.08) K/mm3 Sodium 138 (136-145) mEq/L Potassium 3.8 (3.5-5.1) mEq/L Chloride 104 (98-107) mEq/L Carbon Dioxide 23 (21-32) mEq/L Anion Gap 14.8 (5-15) BUN 6 L (7-18) mg/dL Creatinine 0.7 (0.55-1.02) mg/dL Est Cr Clr Drug Dosing 78.83 mL/min Estimated GFR (MDRD) > 60 (>60) mL/min BUN/Creatinine Ratio 8.6 L (14-18) Glucose 232 H (74-106) mg/dL POC Glucose 219 H 179 H (70-105) mg/dL Calcium 8.8 (8.5-10.1) mg/dL Magnesium 1.6 L (1.8-2.4) mg/dl TUNDE Results - Last 24 hrs: Microbiology 08/22/17 17:00 Stool Culture - Preliminary Stool / Feces - Stool, Liquid - Final NEGATIVE FOR SHIGA TOXIN 1 - Final NEGATIVE FOR SHIGA TOXIN 2 Med Orders - Current: Current Medications Acetaminophen (Tylenol) 650 mg PO Q4H PRN PRN Reason: Pain (Mild 1-3)/fever Hydrocodone Bitart/Acetaminophen (Hope 325-5 Mg) 1 tab PO Q4H PRN PRN Reason: Pain (moderate 4-6) Albuterol/Ipratropium (Duoneb 3.0-0.5 Mg/3 Ml) 3 ml NEB Q4H PRN PRN Reason: Shortness Of Breath/wheezing Amlodipine Besylate (Norvasc) 5 mg PO DAILY EN Last Admin: 01/14/18 09:01 Dose: 5 mg Dextrose/Water (Dextrose 50% In Water) 50 ml IVPUSH ASDIRECTED PRN PRN Reason: Hypoglycemia Fish Oil (Fish Oil) 1 gm PO DAILY [facility] Last Admin: 08/24/17 09:00 Dose: 1 gm Glipizide (Glucotrol) 5 mg PO DAILY [facility] Last Admin: 08/24/17 09:02 Dose: 5 mg Hydralazine HCl (Apresoline) 20 mg IVPUSH Q4H PRN PRN Reason: Hypertension Last Admin: 08/23/17 21:36 Dose: 20 mg Hydrochlorothiazide (Hydrochlorothiazide) 12.5 mg PO DAILY [facility] Last Admin: 08/24/17 09:01 Dose: 12.5 mg Hydromorphone HCl (Dilaudid) 0.25 mg IVPUSH Q2H PRN PRN Reason: Pain (severe 7-10) Last Admin: 08/20/17 21:08 Dose: 0.25 mg Promethazine HCl 12.5 mg/ (Sodium Chloride) 50.5 mls @ 100 mls/hr IV Q6H PRN PRN Reason: Nausea/Vomiting Dextrose/Sodium Chloride (Dextrose 5%-Normal Saline) 1,000 mls @ 100 mls/hr IV ASDIRECTED [facility] Last Admin: 08/22/17 15:33 Dose: 100 mls/hr Levofloxacin/Dextrose 500 mg/ (Premix) 100 mls @ 100 mls/hr IV Q24H [facility] Last Admin: 08/24/17 16:13 Dose: 100 mls/hr Metronidazole 500 mg/ Premix 100 mls @ 100 mls/hr IV Q8H [facility] Last Admin: 08/24/17 09:44 Dose: 100 mls/hr Insulin Aspart (Novolog) 0 unit SUBCUT QIDACANDBED [facility] PRN Reason: Protocol Last Admin: 08/24/17 12:43 Dose: 1 unit Lisinopril (Prinivil) 40 mg PO DAILY [facility] Last Admin: 08/24/17 09:00 Dose: 40 mg Magnesium Oxide (Magnesium Oxide) 400 mg PO TID [facility] Last Admin: 08/24/17 16:13 Dose: 400 mg Magnesium Sulfate (Pharmacy To Dose - Magnesium Replacement) 1 dose .XX ASDIRECTED [facility] Metformin HCl (Glucophage) 1,000 mg PO DAILY [facility] Last Admin: 08/24/17 09:00 Dose: 1,000 mg Metoprolol Tartrate (Lopressor) 5 mg IVPUSH Q4H PRN PRN Reason: Tachycardia Multivitamins (Thera) 1 each PO DAILY [facility] Last Admin: 08/24/17 09:02 Dose: 1 each Ondansetron HCl (Zofran) 4 mg IV Q4H PRN PRN Reason: Nausea/Vomiting Oxybutynin Chloride (Oxybutynin Er) 10 mg PO DAILY [facility] Last Admin: 08/24/17 09:01 Dose: 10 mg Oxymetazoline HCl (Afrin Original 0.05% Nasal [place]) 0 ml JOE Q12HR PRN PRN Reason: Congestion Last Admin: 08/22/17 10:01 Dose: 2 spray Potassium Chloride (Pharmacy To Dose - Potassium Replacement) 1 dose .XX ASDIRECTED [facility] Saccharomyces Boulardii (Florastor) 250 mg PO BID [facility] Last Admin: 08/24/17 09:00 Dose: 250 mg Simvastatin (Zocor) 20 mg PO BEDTIME [facility] Sodium Chloride (Saline Flush) 10 ml FLUSH ASDIRECTED PRN PRN Reason: Keep Vein Open Last Admin: 08/22/17 15:07 Dose: 10 ml Temazepam (Restoril) 15 mg PO BEDTIME PRN PRN Reason: Sleep Last Admin: 08/22/17 22:01 Dose: 15 mg Vitamin B Complex/Vitamin C (Super B With Vitamin C) 1 cap PO DAILY [facility] Last Admin: 08/24/17 09:02 Dose: 1 cap Discontinued Medications Diatrizoate Meglum/Diatrizoate Sod (Gastrografin 37%) 90 ml PO ONETIME ONE Stop: 08/22/17 13:58 Last Admin: 08/22/17 15:07 Dose: 90 ml Famotidine (Pepcid) 20 mg IVPUSH ONETIME ONE Stop: 08/20/17 15:55 Last Admin: 08/20/17 16:05 Dose: 20 mg Furosemide (Lasix) 20 mg IVPUSH NOW ONE Stop: 08/23/17 18:29 Last Admin: 08/23/17 18:44 Dose: 20 mg Hydromorphone HCl (Dilaudid) 0.25 mg IVPUSH ONETIME ONE Stop: 08/20/17 16:10 Last Admin: 08/20/17 16:37 Dose: 0.25 mg Hydromorphone HCl (Dilaudid) 0.25 mg IVPUSH ONETIME ONE Stop: 08/20/17 17:35 Last Admin: 08/20/17 17:50 Dose: 0.25 mg Sodium Chloride (Normal Saline) 1,000 mls @ 999 mls/hr IV ONETIME [facility] Last Admin: 08/20/17 15:59 Dose: 999 mls/hr Sodium Chloride (Normal Saline) Confirm Administered Dose 1,000 mls @ as directed .ROUTE .STK-MED ONE Stop: 08/20/17 15:59 Last Admin: 08/20/17 16:00 Dose: Not Given Sodium Chloride (Normal Saline) 1,000 mls @ 999 mls/hr IV ONETIME ONE Stop: 08/20/17 17:08 Last Admin: 08/20/17 16:09 Dose: 999 mls/hr Sodium Chloride (Normal Saline) 1,000 mls @ 999 mls/hr IV ONETIME [facility] Last Admin: 08/20/17 17:45 Dose: 999 mls/hr Levofloxacin/Dextrose 500 mg/ (Premix) 100 mls @ 100 mls/hr IV ONETIME ONE Stop: 08/20/17 18:34 Last Admin: 08/20/17 17:55 Dose: 100 mls/hr Sodium Chloride (Normal Saline) 1,000 mls @ 100 mls/hr IV ASDIRECTED [facility] Stop: 08/22/17 09:29 Last Admin: 08/20/17 23:57 Dose: 100 mls/hr Magnesium Sulfate 2 gm/ Premix 50 mls @ 25 mls/hr IV ONETIME ONE Stop: 08/21/17 12:29 Last Admin: 08/21/17 10:45 Dose: 25 mls/hr Magnesium Sulfate 2 gm/ Premix 50 mls @ 25 mls/hr IV ONETIME ONE Stop: 08/22/17 10:29 Last Admin: 08/22/17 09:32 Dose: 25 mls/hr Levofloxacin/Dextrose 500 mg/ (Premix) 100 mls @ 100 mls/hr IV ONETIME ONE Stop: 08/22/17 18:01 Last Admin: 08/22/17 17:30 Dose: 100 mls/hr Magnesium Sulfate 2 gm/ Premix 50 mls @ 25 mls/hr IV ONETIME ONE Stop: 08/23/17 12:14 Last Admin: 08/23/17 10:34 Dose: 25 mls/hr Magnesium Sulfate 2 gm/ Premix 50 mls @ 25 mls/hr IV ONETIME ONE Stop: 08/24/17 12:29 Last Admin: 08/24/17 10:54 Dose: 25 mls/hr Influenza Virus Vaccine (Pharmacy To Dose - Influenza Vaccine) 1 each IM ONETIME ONE Stop: 08/20/17 19:59 Influenza Virus Vaccine (Flulaval Quad [id number]) 60 mcg IM .ONCE ONE Stop: 08/20/17 20:16 Insulin Aspart (Novolog) 0 unit SUBCUT QIDACANDBED [facility] PRN Reason: Protocol Last Admin: 08/21/17 07:47 Dose: Not Given Iopamidol (Isovue-300 (61%)) 125 ml IVPUSH ONETIME ONE Stop: 08/22/17 13:58 Last Admin: 08/22/17 15:07 Dose: 125 ml Magnesium Oxide (Magnesium Oxide) 800 mg PO ONETIME ONE Stop: 08/21/17 08:31 Last Admin: 08/21/17 10:03 Dose: Not Given Non-Formulary Medication (Ubiquinol [Ubiquinol]) 100 mg PO DAILY [facility] Ondansetron HCl (Zofran) 4 mg IVPUSH ONETIME ONE Stop: 08/20/17 16:10 Last Admin: 08/20/17 16:35 Dose: 4 mg Pantoprazole Sodium (Protonix Iv) 40 mg IVPUSH ONETIME ONE Stop: 08/20/17 15:55 Last Admin: 08/20/17 16:03 Dose: 40 mg Pantoprazole Sodium (Protonix Iv) 40 mg IV Q12H [facility] Stop: 08/22/17 09:01 Last Admin: 08/22/17 08:12 Dose: 40 mg Potassium Chloride (Klor-Con M20) 40 meq PO Q4H [facility] Stop: 08/22/17 13:01 Last Admin: 08/22/17 09:27 Dose: Not Given Potassium Chloride (Klor-Con M20) 40 meq PO Q4H [facility] Stop: 08/23/17 15:01 Last Admin: 08/23/17 15:02 Dose: 40 meq Sodium Chloride (Saline Flush) 10 ml FLUSH ONETIME ONE Stop: 08/22/17 13:58 Last Admin: 08/22/17 15:32 Dose: Not Given - Exam General: Reports: Alert, Oriented, Cooperative, No Acute Distress, Other (Obese) HEENT: Reports: Pupils Equal, Pupils Reactive, EOMI, Mucous Membr. Moist/[place] Neck: Reports: Supple, Trachea Midline, No JVD, No Thyromegaly Lungs: Reports: Clear to Auscultation, Normal Respiratory Effort Cardiovascular: Reports: Regular Rate, Regular Rhythm GI/Abdominal Exam: Normal Bowel Sounds, Soft, Non-Tender, No Organomegaly, No Distention, No Abnormal Bruit, No Mass (Female) Exam: Deferred Rectal (Female) Exam: Deferred Back Exam: Reports: Normal Inspection, Decreased Range of Motion Extremities: Normal Inspection, Normal Range of Motion, Non-Tender, No Pedal Edema, Normal Capillary Refill Skin: Reports: Warm, Dry, Intact. Denies: Rash Neurological: Reports: No New Focal Deficit Psy/Mental Status: Reports: Alert, Normal Affect, Normal Mood *Q Meaningful Use (DIS) - VTE *Q VTE Criteria *Q: - Stroke *Q Stroke Criteria *Q: - AMI *Q AMI Criteria *Q:
--- NOTE | 2017-08-24 17:28 | PCM.PN ---
- General Info Date of Service: 08/24/17 Admission Dx/Problem (Free Text): Colitis Subjective Update: Follow Up Functional Status: Reports: Pain Controlled, Tolerating Diet, Urinating. Denies : New Symptoms - Patient Data Vitals - Most Recent: Last Vital Signs Temp 36.1 C 08/24/17 15:00 Pulse 74 08/24/17 15:00 Resp 18 08/24/17 15:00 BP 120/79 08/24/17 15:00 Pulse Ox 97 08/24/17 15:00 Weight - Most Recent: 99.291 kg I&O - Last 24 Hours: Intake & Output 08/24/17 08/24/17 08/24/17 06:59 14:59 22:59 Intake Total 650 280 250 Balance 650 280 250 Lab Results Last 24 Hours: Laboratory Results - last 24 hr 08/23/17 08/24/17 08/24/17 Range/Units 21:26 06:06 06:06 WBC 6.32 (3.98-10.04) K/mm3 RBC 4.14 (3.98-5.22) M/mm3 Hgb 11.5 (11.2-15.7) gm/L Hct 34.9 (34.1-44.9) % MCV 84.3 (79.4-94.8) fl MCH 27.8 (25.6-32.2) pg MCHC 33.0 (32.2-35.5) g/dl RDW Std Deviation 43.0 (36.4-46.3) fL Plt Count 188 (182-369) K/mm3 MPV 9.7 (9.4-12.3) fl Neut % (Auto) 67.3 (34.0-71.1) % Lymph % (Auto) 20.1 (19.3-51.7) % [place] % (Auto) 6.5 (4.7-12.5) % Eos % (Auto) 4.3 (0.7-5.8) Baso % (Auto) 0.5 (0.1-1.2) % Neut # (Auto) 4.26 (1.56-6.13) K/mm3 Lymph # (Auto) 1.27 (1.18-3.74) K/mm3 [place] # (Auto) 0.41 H (0.24-0.36) K/mm3 Eos # (Auto) 0.27 (0.04-0.36) K/mm3 Baso # (Auto) 0.03 (0.01-0.08) K/mm3 Sodium 138 (136-145) mEq/L Potassium 3.8 (3.5-5.1) mEq/L Chloride 104 (98-107) mEq/L Carbon Dioxide 23 (21-32) mEq/L Anion Gap 14.8 (5-15) BUN 6 L (7-18) mg/dL Creatinine 0.7 (0.55-1.02) mg/dL Est Cr Clr Drug Dosing 78.83 mL/min Estimated GFR (MDRD) > 60 (>60) mL/min BUN/Creatinine Ratio 8.6 L (14-18) Glucose 232 H (74-106) mg/dL POC Glucose 240 H (70-105) mg/dL Calcium 8.8 (8.5-10.1) mg/dL Magnesium 1.6 L (1.8-2.4) mg/dl 08/24/17 08/24/17 Range/Units 06:47 11:42 WBC (3.98-10.04) K/mm3 RBC (3.98-5.22) M/mm3 Hgb (11.2-15.7) gm/L Hct (34.1-44.9) % MCV (79.4-94.8) fl MCH (25.6-32.2) pg MCHC (32.2-35.5) g/dl RDW Std Deviation (36.4-46.3) fL Plt Count (182-369) K/mm3 MPV (9.4-12.3) fl Neut % (Auto) (34.0-71.1) % Lymph % (Auto) (19.3-51.7) % [place] % (Auto) (4.7-12.5) % Eos % (Auto) (0.7-5.8) Baso % (Auto) (0.1-1.2) % Neut # (Auto) (1.56-6.13) K/mm3 Lymph # (Auto) (1.18-3.74) K/mm3 [place] # (Auto) (0.24-0.36) K/mm3 Eos # (Auto) (0.04-0.36) K/mm3 Baso # (Auto) (0.01-0.08) K/mm3 Sodium (136-145) mEq/L Potassium (3.5-5.1) mEq/L Chloride (98-107) mEq/L Carbon Dioxide (21-32) mEq/L Anion Gap (5-15) BUN (7-18) mg/dL Creatinine (0.55-1.02) mg/dL Est Cr Clr Drug Dosing mL/min Estimated GFR (MDRD) (>60) mL/min BUN/Creatinine Ratio (14-18) Glucose (74-106) mg/dL POC Glucose 219 H 179 H (70-105) mg/dL Calcium (8.5-10.1) mg/dL Magnesium (1.8-2.4) mg/dl Sigifredo Results Last 24 Hours: Microbiology 08/22/17 17:00 Stool Culture - Preliminary Stool / Feces - Stool, Liquid - Final NEGATIVE FOR SHIGA TOXIN 1 - Final NEGATIVE FOR SHIGA TOXIN 2 Med Orders - Current: Current Medications Acetaminophen (Tylenol) 650 mg PO Q4H PRN PRN Reason: Pain (Mild 1-3)/fever Hydrocodone Bitart/Acetaminophen ([place] 325-5 Mg) 1 tab PO Q4H PRN PRN Reason: Pain (moderate 4-6) Albuterol/Ipratropium (Duoneb 3.0-0.5 Mg/3 Ml) 3 ml NEB Q4H PRN PRN Reason: Shortness Of Breath/wheezing Amlodipine Besylate (Norvasc) 5 mg PO DAILY [facility] Last Admin: 08/24/17 09:01 Dose: 5 mg Dextrose/Water (Dextrose 50% In Water) 50 ml IVPUSH ASDIRECTED PRN PRN Reason: Hypoglycemia Fish Oil (Fish Oil) 1 gm PO DAILY [facility] Last Admin: 08/24/17 09:00 Dose: 1 gm Glipizide (Glucotrol) 5 mg PO DAILY [facility] Last Admin: 08/24/17 09:02 Dose: 5 mg Hydralazine HCl (Apresoline) 20 mg IVPUSH Q4H PRN PRN Reason: Hypertension Last Admin: 08/23/17 21:36 Dose: 20 mg Hydrochlorothiazide (Hydrochlorothiazide) 12.5 mg PO DAILY [facility] Last Admin: 08/24/17 09:01 Dose: 12.5 mg Hydromorphone HCl (Dilaudid) 0.25 mg IVPUSH Q2H PRN PRN Reason: Pain (severe 7-10) Last Admin: 08/20/17 21:08 Dose: 0.25 mg Promethazine HCl 12.5 mg/ (Sodium Chloride) 50.5 mls @ 100 mls/hr IV Q6H PRN PRN Reason: Nausea/Vomiting Dextrose/Sodium Chloride (Dextrose 5%-Normal Saline) 1,000 mls @ 100 mls/hr IV ASDIRECTED [facility] Last Admin: 08/22/17 15:33 Dose: 100 mls/hr Levofloxacin/Dextrose 500 mg/ (Premix) 100 mls @ 100 mls/hr IV Q24H [facility] Last Admin: 08/24/17 16:13 Dose: 100 mls/hr Metronidazole 500 mg/ Premix 100 mls @ 100 mls/hr IV Q8H [facility] Last Admin: 08/24/17 09:44 Dose: 100 mls/hr Insulin Aspart (Novolog) 0 unit SUBCUT QIDACANDBED [facility] PRN Reason: Protocol Last Admin: 08/24/17 12:43 Dose: 1 unit Lisinopril (Prinivil) 40 mg PO DAILY [facility] Last Admin: 08/24/17 09:00 Dose: 40 mg Magnesium Oxide (Magnesium Oxide) 400 mg PO TID [facility] Last Admin: 08/24/17 16:13 Dose: 400 mg Magnesium Sulfate (Pharmacy To Dose - Magnesium Replacement) 1 dose .XX ASDIRECTED [facility] Metformin HCl (Glucophage) 1,000 mg PO DAILY [facility] Last Admin: 08/24/17 09:00 Dose: 1,000 mg Metoprolol Tartrate (Lopressor) 5 mg IVPUSH Q4H PRN PRN Reason: Tachycardia Multivitamins (Thera) 1 each PO DAILY [facility] Last Admin: 08/24/17 09:02 Dose: 1 each Ondansetron HCl (Zofran) 4 mg IV Q4H PRN PRN Reason: Nausea/Vomiting Oxybutynin Chloride (Oxybutynin Er) 10 mg PO DAILY [facility] Last Admin: 08/24/17 09:01 Dose: 10 mg Oxymetazoline HCl (Afrin Original 0.05% Nasal [place]) 0 ml JOE Q12HR PRN PRN Reason: Congestion Last Admin: 08/22/17 10:01 Dose: 2 spray Potassium Chloride (Pharmacy To Dose - Potassium Replacement) 1 dose .XX ASDIRECTED EN Saccharomyces Boulardii (Florastor) 250 mg PO BID EN Last Admin: 08/24/17 09:00 Dose: 250 mg Simvastatin (Zocor) 20 mg PO BEDTIME EN Sodium Chloride (Saline Flush) 10 ml FLUSH ASDIRECTED PRN PRN Reason: Keep Vein Open Last Admin: 08/22/17 15:07 Dose: 10 ml Temazepam (Restoril) 15 mg PO BEDTIME PRN PRN Reason: Sleep Last Admin: 08/22/17 22:01 Dose: 15 mg Vitamin B Complex/Vitamin C (Super B With Vitamin C) 1 cap PO DAILY EN Last Admin: 08/24/17 09:02 Dose: 1 cap Discontinued Medications Diatrizoate Meglum/Diatrizoate Sod (Gastrografin 37%) 90 ml PO ONETIME ONE Stop: 08/22/17 13:58 Last Admin: 08/22/17 15:07 Dose: 90 ml Famotidine (Pepcid) 20 mg IVPUSH ONETIME ONE Stop: 08/20/17 15:55 Last Admin: 08/20/17 16:05 Dose: 20 mg Furosemide (Lasix) 20 mg IVPUSH NOW ONE Stop: 08/23/17 18:29 Last Admin: 08/23/17 18:44 Dose: 20 mg Hydromorphone HCl (Dilaudid) 0.25 mg IVPUSH ONETIME ONE Stop: 08/20/17 16:10 Last Admin: 08/20/17 16:37 Dose: 0.25 mg Hydromorphone HCl (Dilaudid) 0.25 mg IVPUSH ONETIME ONE Stop: 08/20/17 17:35 Last Admin: 08/20/17 17:50 Dose: 0.25 mg Sodium Chloride (Normal Saline) 1,000 mls @ 999 mls/hr IV ONETIME EN Last Admin: 08/20/17 15:59 Dose: 999 mls/hr Sodium Chloride (Normal Saline) Confirm Administered Dose 1,000 mls @ as directed .ROUTE .STK-MED ONE Stop: 08/20/17 15:59 Last Admin: 08/20/17 16:00 Dose: Not Given Sodium Chloride (Normal Saline) 1,000 mls @ 999 mls/hr IV ONETIME ONE Stop: 08/20/17 17:08 Last Admin: 08/20/17 16:09 Dose: 999 mls/hr Sodium Chloride (Normal Saline) 1,000 mls @ 999 mls/hr IV ONETIME [facility] Last Admin: 08/20/17 17:45 Dose: 999 mls/hr Levofloxacin/Dextrose 500 mg/ (Premix) 100 mls @ 100 mls/hr IV ONETIME ONE Stop: 08/20/17 18:34 Last Admin: 08/20/17 17:55 Dose: 100 mls/hr Sodium Chloride (Normal Saline) 1,000 mls @ 100 mls/hr IV ASDIRECTED [facility] Stop: 08/22/17 09:29 Last Admin: 08/20/17 23:57 Dose: 100 mls/hr Magnesium Sulfate 2 gm/ Premix 50 mls @ 25 mls/hr IV ONETIME ONE Stop: 08/21/17 12:29 Last Admin: 08/21/17 10:45 Dose: 25 mls/hr Magnesium Sulfate 2 gm/ Premix 50 mls @ 25 mls/hr IV ONETIME ONE Stop: 08/22/17 10:29 Last Admin: 08/22/17 09:32 Dose: 25 mls/hr Levofloxacin/Dextrose 500 mg/ (Premix) 100 mls @ 100 mls/hr IV ONETIME ONE Stop: 08/22/17 18:01 Last Admin: 08/22/17 17:30 Dose: 100 mls/hr Magnesium Sulfate 2 gm/ Premix 50 mls @ 25 mls/hr IV ONETIME ONE Stop: 08/23/17 12:14 Last Admin: 08/23/17 10:34 Dose: 25 mls/hr Magnesium Sulfate 2 gm/ Premix 50 mls @ 25 mls/hr IV ONETIME ONE Stop: 08/24/17 12:29 Last Admin: 08/24/17 10:54 Dose: 25 mls/hr Influenza Virus Vaccine (Pharmacy To Dose - Influenza Vaccine) 1 each IM ONETIME ONE Stop: 08/20/17 19:59 Influenza Virus Vaccine (Flulaval Quad [id number]) 60 mcg IM .ONCE ONE Stop: 08/20/17 20:16 Insulin Aspart (Novolog) 0 unit SUBCUT QIDACANDBED [facility] PRN Reason: Protocol Last Admin: 08/21/17 07:47 Dose: Not Given Iopamidol (Isovue-300 (61%)) 125 ml IVPUSH ONETIME ONE Stop: 08/22/17 13:58 Last Admin: 08/22/17 15:07 Dose: 125 ml Magnesium Oxide (Magnesium Oxide) 800 mg PO ONETIME ONE Stop: 08/21/17 08:31 Last Admin: 08/21/17 10:03 Dose: Not Given Non-Formulary Medication (Ubiquinol [Ubiquinol]) 100 mg PO DAILY [facility] Ondansetron HCl (Zofran) 4 mg IVPUSH ONETIME ONE Stop: 08/20/17 16:10 Last Admin: 08/20/17 16:35 Dose: 4 mg Pantoprazole Sodium (Protonix Iv) 40 mg IVPUSH ONETIME ONE Stop: 08/20/17 15:55 Last Admin: 08/20/17 16:03 Dose: 40 mg Pantoprazole Sodium (Protonix Iv) 40 mg IV Q12H [facility] Stop: 08/22/17 09:01 Last Admin: 08/22/17 08:12 Dose: 40 mg Potassium Chloride (Klor-Con M20) 40 meq PO Q4H [facility] Stop: 08/22/17 13:01 Last Admin: 08/22/17 09:27 Dose: Not Given Potassium Chloride (Klor-Con M20) 40 meq PO Q4H [facility] Stop: 08/23/17 15:01 Last Admin: 08/23/17 15:02 Dose: 40 meq Sodium Chloride (Saline Flush) 10 ml FLUSH ONETIME ONE Stop: 08/22/17 13:58 Last Admin: 08/22/17 15:32 Dose: Not Given - Problem List & Annotations (1) Hyperglycemia due to type 2 diabetes mellitus SNOMED Code(s): 145241812368220 Code(s): E11.65 - TYPE 2 DIABETES MELLITUS WITH HYPERGLYCEMIA Status: Acute Current Visit: Yes Qualifiers: Diabetes mellitus residential insulin use: unspecified residential insulin use status Qualified Code(s): E11.65 - Type 2 diabetes mellitus with hyperglycemia (2) Hypomagnesemia SNOMED Code(s): 702719163 Code(s): E83.42 - HYPOMAGNESEMIA Status: Resolved Current Visit: Yes (3) Dehydration SNOMED Code(s): 75572147 Code(s): E86.0 - DEHYDRATION Status: Resolved Current Visit: Yes (4) MARU (acute kidney injury) SNOMED Code(s): 73876281 Code(s): N17.9 - ACUTE KIDNEY FAILURE, UNSPECIFIED Status: Resolved Current Visit: Yes (5) Abdominal pain SNOMED Code(s): 35145928 Code(s): R10.9 - UNSPECIFIED ABDOMINAL PAIN Status: Resolved Current Visit: Yes Qualifiers: Abdominal location: lower abdomen, unspecified Qualified Code(s): R10.30 - Lower abdominal pain, unspecified (6) High anion gap metabolic acidosis SNOMED Code(s): 14945145 Code(s): E87.2 - ACIDOSIS Status: Resolved Current Visit: Yes (7) Colitis SNOMED Code(s): 52607661 Code(s): K52.9 - NONINFECTIVE GASTROENTERITIS AND COLITIS, UNSPECIFIED Status: Acute Current Visit: Yes (8) GI bleeding SNOMED Code(s): 29887633 Code(s): K92.2 - GASTROINTESTINAL HEMORRHAGE, UNSPECIFIED Status: Acute Priority: High Current Visit: Yes Qualifiers: GI bleed type/associated pathology: unspecified gastrointestinal hemorrhage type Qualified Code(s): K92.2 - Gastrointestinal hemorrhage, unspecified - My Orders Last 24 Hours: My Active Orders 08/23/17 17:00 Levofloxacin/Dextrose 5%-Water [Levaquin in D5W 500 MG/100 ML] 500 mg Premix Bag 1 bag IV Q24H 08/24/17 09:00 Alogliptin Benzoate [Alogliptin] 12.5 mg PO DAILY Fish Oil/[place]-3 Fatty Acids [Fish Oil] 1 gm PO DAILY Multivitamins,Therapeutic [Thera] 1 each PO DAILY Oxybutynin [Oxybutynin ER] 10 mg PO DAILY Vitamin B Complex with C [Super B With Vitamin C] 1 cap PO DAILY glipiZIDE [Glucotrol] 5 mg PO DAILY metFORMIN [Glucophage] 1,000 mg PO DAILY 08/24/17 15:00 Magnesium Oxide 400 mg PO TID 08/24/17 16:16 Ready for Discharge [RC] PER UNIT ROUTINE 08/24/17 21:00 Simvastatin [Zocor] 20 mg PO BEDTIME 08/24/17 Breakfast GI Soft Low Fiber [Soft Diet] [DIET] 08/25/17 05:11 BASIC METABOLIC PANEL,BMP [CHEM] AM MAGNESIUM [CHEM] AM
[2017-08-24] MEDS ORDERED: Simvastatin 20 MG Tab PO SCH (21:00)
--- NOTE | 2017-08-25 07:35 | CONS ---
CONSULTING PHYSICIAN: Nolberto Flanagan MD DATE OF CONSULTATION: 08/22/2017 HISTORY OF PRESENT ILLNESS: This is a 57-year-old who came in to the hospital yesterday with pain, some dizziness, no hypertension, hematochezia. The patient had lunch and then about 2 hours later was having some abdominal pain and cramping and went to the bathroom, unable to have a bowel movement and noted some bloating. Then, she had a severe large watery diarrhea stool, bright red blood. Her pain was generalized and some nausea but no vomiting. The patient this morning also had a small bloody bowel movement with bright red blood. The patient seems to be stable, but her hemoglobin has gone from about 14 to about 10.9 over the period of observation. Her pulse is, however, stable and her vital signs are running 157/83 and a pulse of 87. The patient states that she has never had this before. The patient does carry a history of lap banding procedure, hypertension, type 2 diabetes. She does take only one aspirin a day and no blood thinners. PAST MEDICAL HISTORY: Diabetes and hypertension. PAST SURGICAL HISTORY: Lap band and hysterectomy. REVIEW OF SYSTEMS: No chest pain, shortness of breath, cough, hoarseness, wheezing, fainting, weakness, numbness, convulsions. Some nausea, but no vomiting. Hematochezia, but no hematemesis. She does have tenderness in the abdomen. Continues to have tenderness while in the hospital in the left lower quadrant. FAMILY HISTORY: Negative. Never smoked. No drinking. ALLERGIES: None known, except for latex. MEDICATIONS: Per medication reconciliation form. PHYSICAL EXAMINATION: GENERAL: Reveals alert, cooperative female. EYES: Sclerae white. Extraocular muscle motion normal. Oral cavity, healthy mucous membrane with mouth and tongue. NECK: Supple. No nodes. No thyromegaly. Trachea midline. LUNGS: Clear. No rales, rhonchi, fremitus, dullness. HEART: Heart tones regular rate. VITAL SIGNS: Blood pressure 157/80, pulse 88. Sats are normal. ABDOMEN: Tenderness and guarding in the right lower quadrant. EXTREMITIES: Upper and lower extremities, no angulation deformities. No sensorineural deficit. SKIN: Warm and dry. NEUROLOGIC: Cranial nerves III through XII intact. LABORATORY DATA: Shows a creatinine of 1.2 with a BUN of 24, potassium 4.4. Sodium 141, chloride 109, and CO2 is 20. Glucose is running at about 267. C-reactive protein is high at 9.1. Of interest is that her white count when she came in, was 22,000. ASSESSMENT: Rectal bleeding, abdominal pain in the left lower quadrant with guarding, type 2 diabetes, and elevated C-reactive protein. PLAN: Plan is to work up her abdominal pain prior to doing a colonoscopy and CT of the abdomen and pelvis. STARR /[id number]
== END 2017-08-24 18:45 | disposition home or self-care (01) | DRG 254 ==
LOC: JD.ED 15:24 → JD.ICU 19:22
PROVIDERS: ADMIT Internal Medicine; ATTEND Internal Medicine
DX: K92.1 Melena (principal); K52.9 Noninfective gastroenteritis and colitis, unspecified; N17.9 Acute kidney failure, unspecified; E86.0 Dehydration; E83.51 Hypocalcemia; E83.42 Hypomagnesemia; E87.2 Acidosis; R10.32 Left lower quadrant pain; Z91.040 Latex allergy status; E11.65 Type 2 diabetes mellitus with hyperglycemia; I10 Essential (primary) hypertension; M19.90 Unspecified osteoarthritis, unspecified site; E78.5 Hyperlipidemia, unspecified; Z79.84 Long term (current) use of oral hypoglycemic drugs; Z79.82 Long term (current) use of aspirin; Z79.899 Other long term (current) drug therapy
CPT/HCPCS: 36415; 74177; 74177-26; 80048; 80053; 82270; 82962; 83630; 83735; 85018; 85025; 85610; 85730; 86140; 86850; 86900; 86901; 87046; 87427; 87493; 89055; 96361; 96365; 96374; 96375; 96376; 99285; 99285-25; A9270; A9270-GY; C9113; J0360; J1170; J1815-GY; J1956; J2405; J3475; J7040; J7042; J7050; Q9967